=== PATIENT | male | born 1935 | race Caucasian/White ===

== ENCOUNTER → 2016-08-16 | Outpatient (CLI) | payer OTHER | LOC: GIMAGING 14:04 | PROVIDERS: ATTEND Family Medicine | DX: R07.81 Pleurodynia (principal) | CPT/HCPCS: 71101-PO ==

== ENCOUNTER 2016-11-14 12:41 | Inpatient (IN) | payer OTHER ==
[2016-11-14] MEDS ORDERED: NS 1,000 ML IV ONE ×4 (13:05→22:09)
--- NOTE | 2016-11-14 13:05 | EDPHY ---
H & P Stated Complaint: UA done today w/+ results;started with abd cramps and chills HPI/ROS: HPI CHIEF COMPLAINT: Shaking all over, bladder spasm HISTORY OF PRESENT ILLNESS: This patient 81-year-old male, significant past medical history for depression, BPH, and recurrent urinary tract infections, he presents emergency room after he was giving an outpatient urine specimen he went to lunch in the cafeteria started feeling cold and shaking all over. He tells me he developed some bladder spasms. He decided to check in emergency room as he cannot control he shaking. He does endorse chills. Vomiting or diarrhea. Does have nausea. He tells me that he had shakes like this before when he was dehydrated. Past Medical History: BPH, depression, recurrent urinary tract infection Past Surgical History: No recent surgery Social History: Denies daily use of drugs alcohol tobacco products lives at the [facility] Family History: Noncontributory ROS REVIEW OF SYSTEMS: A comprehensive 10 point review of systems is otherwise negative aside from elements mentioned in the history of present illness. Exam Constitutional appears well nontoxic, triage nursing summary reviewed, vital signs reviewed, awake/alert. Eyes normal conjunctivae and sclera, EOMI, PERRLA. HENT normal inspection, atraumatic, moist mucus membranes, no epistaxis, neck supple/ no meningismus, no raccoon eyes. Respiratory clear to auscultation bilaterally, normal breath sounds, no respiratory distress, no wheezing. Cardiovascular rate normal, regular rhythm, no murmur, no edema, distal pulses normal. Gastrointestinal soft, non-tender, no rebound, no guarding, normal bowel sounds, no distension, no pulsatile mass. Genitourinary no CVA tenderness. Musculoskeletal no midline vertebral tenderness, full range of motion, no calf swelling, no tenderness of extremities, no meningismus, good pulses, neurovascularly intact. Skin pink, warm, & dry, no rash, skin atraumatic. Neurologic awake, alert and oriented x 3, AAOx3, moves all 4 extremities equally, motor intact, sensory intact, CN II-XII intact, normal cerebellar, normal vision, normal speech. Psychiatric normal mood/affect. Heme/Lymph/Immune no lymphadenopathy. Differential Diagnosis: Includes but is not limited to in a particular order dehydration, electrolyte disturbance, infection, UTI. Medical Decision Making: Plan for this patient IV establishment, IV fluid bolus 1 L normal saline, check basic blood work, urinalysis. Re-evaluate. Re-evaluation: 1330: Notified to me that patient just vomited. I did review his urinalysis from lab today. Indicates that he has a urinary tract infection nitrite positive. I have sent a urine culture. 1 g Rocephin ordered. Blood cultures have been ordered in case the shakes or rigors. IV fluids. Lactic acid. 1332: This patient's lactic acid is 4.7 at this time he is in severe sepsis. Patient be appropriately resuscitated with IV fluids. He is not hypotensive does not require pressors at this time. Plan will be fluid resuscitation IV antibiotics for his urinary tract infection and trend his lactic acid. He will need to be admitted to the hospital. 1425: Patient cleared septic shock. This is due to elevated lactic acid 4.7. He is not hypotensive. He is receiving IV fluid fluid bolus 30 mL as per kg. Antibiotics are to be given IV Rocephin. He has been admitted to the step-down unit for close monitoring. 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 Coronel I viewed the images myself on the PACS system. Source: Patient - Personal History Current Tetanus Diphtheria and Acellular Pertussis (TDAP): Unsure - Medical/Surgical History Other PMH: chronic recurrent UTIs Constitutional: Initial Vital Signs Temperature (C) 36.6 C 11/14/16 12:54 Heart Rate 88 11/14/16 12:54 Respiratory Rate 20 11/14/16 12:54 Blood Pressure 126/72 H 11/14/16 12:54 O2 Sat (%) 96 11/14/16 12:54 O2 Delivery Mode Nasal Cannula O2 (L/minute) 2 Allergies/Adverse Reactions: No Known Allergies Allergy (Unverified 11/14/16 14:35) Home Medications: Medication Instructions Recorded Aspirin EC [Aspirin EC 81 mg (*)] 81 mg PO DAILY 11/14/16 Bupropion HCl [Wellbutrin Xl] 300 mg PO DAILY 11/14/16 Cholecalciferol Vit D3 [Vitamin D3 2,000 units PO DAILY 11/14/16 2000 units tab (OTC)] Cyanocobalamin (Vitamin B-12) 1,000 mcg PO DAILY 11/14/16 [B-12] Escitalopram Oxalate [Lexapro] 20 mg PO DAILY 11/14/16 Herbals/Supplements -Info Only 1 ea PO DAILY 11/14/16 Tamsulosin HCl [Flomax 0.4 MG (*)] 0.4 mg PO DAILY 11/14/16 Vit C/Dl-E AC/Lut/Copper/Znox 1 each PO DAILY 11/14/16 [Preservision Softgel] Medical Decision Making - Data Points Laboratory Results: Laboratory Results 11/14/16 13:15 11/14/16 13:15 Microbiology Results: MICROBIOLOGY 11/14/16 13:15 Blood Blood Culture - Preliminary Gram Neg Ferny [employer] Receptionist 11/14/16 13:15 Blood Blood Panel (PCR) - Final Escherichia Coli Medications Given: Discontinued Medications Sodium Chloride (Ns) 1,000 mls @ 0 mls/hr IV EDNOW ONE; Wide Open PRN Reason: Protocol Stop: 11/14/16 13:06 Last Admin: 11/14/16 13:25 Dose: 1,000 mls Ceftriaxone Sodium/Dextrose (Rocephin 1 Gm (Premix)) 50 mls @ 100 mls/hr IV EDNOW ONE PRN Reason: Protocol Stop: 11/14/16 13:56 Last Admin: 11/14/16 13:33 Dose: 50 mls Sodium Chloride (Ns) 1,000 mls @ 0 mls/hr IV ONCE ONE PRN Reason: Wide Open Stop: 11/14/16 13:32 Last Admin: 11/14/16 13:34 Dose: 1,000 mls Sodium Chloride (Ns) 1,000 mls @ 125 mls/hr IV CONT BERNY Stop: 05/13/17 14:59 Last Admin: 11/14/16 17:22 Dose: 1,000 mls Sodium Chloride (Ns) 1,000 mls @ 0 mls/hr IV ONCE ONE PRN Reason: Wide Open Stop: 11/14/16 15:24 Last Admin: 11/14/16 16:30 Dose: 1,000 mls Sodium Chloride (Ns) 1,000 mls @ 3,000 mls/hr IV ONCE ONE Stop: 11/14/16 22:28 Last Admin: 11/14/16 22:14 Dose: 1,000 mls Sodium Chloride (Ns) 1,000 mls @ 0 mls/hr IV ONCE ONE PRN Reason: As Directed Stop: 11/15/16 02:01 Last Admin: 11/15/16 00:45 Dose: 1,000 mls Lidocaine (Uroject Lidocaine 2% Jelly) 0 ml UR ONCE ONE Stop: 11/15/16 04:31 Last Admin: 11/15/16 05:28 Dose: 20 ml Morphine Sulfate (Morphine) 2 - 4 mg IVP ONCE ONE Stop: 11/15/16 04:40 Last Admin: 11/15/16 04:20 Dose: 4 mg Ondansetron HCl (Zofran) 4 mg IVP EDNOW ONE Stop: 11/14/16 13:27 Last Admin: 11/14/16 13:31 Dose: 4 mg Departure - Departure Disposition: [facility] Acute Clinical Impression: Septic shock Urinary tract infection Qualifiers: Urinary tract infection type: acute cystitis Hematuria presence: with hematuria Qualified Code(s): N30.01 - Acute cystitis with hematuria Condition: Fair
[2016-11-14] MEDS ORDERED: ONDANSETRON 4 MG/2 ML VIAL IVP ONE (13:26)
[2016-11-14 13:27] LABS: % IMMATURE GRANULYOCYTES 0.4 % (0.0-1.1); ABSOLUTE IMMATURE GRANULOCYTES 0.03 10^3/uL (0.00-0.10); ADD DIFF? NO; ADD MORPH? NO; ADD SCAN? NO; ATYPICAL LYMPHOCYTE FLAG 0 (0-99); FRAGMENT RBC FLAG 0 (0-99); HEMATOCRIT 43.3 % (40.0-51.0); HEMOGLOBIN 14.7 g/dL (13.7-17.5); LEFT SHIFT FLG 20 (0-99); LIPEMIA HEMOLYSIS FLAG 90 (0-99); MEAN CELL HEMOGLOBIN 31.5 pg (27.9-34.1); MEAN CELL HEMOGLOBIN CONCENTR. 33.9 g/dL (32.4-36.7); MEAN CELL VOLUME 92.9 fL (81.5-99.8); MEAN PLATELET VOLUME 9.5 fL (8.7-11.7); PLATELET CLUMPS FLAG 0 (0-99); PLATELET COUNT 152 10^3/uL (150-400); RED BLOOD CELL COUNT 4.66 10^6/uL (4.40-6.38); RED CELL DISTRIBUTION WIDTH 13.6 % (11.5-15.2)
[2016-11-14 13:36] LABS: PROTIME(PATIENT) 13.1 SEC (12.0-15.0)
[2016-11-14 13:37] LABS: APTT 24.1 SEC (23.0-38.0)
[2016-11-14 13:49] LABS: ALANINE AMINOTRANSFERASE 35 IU/L (21-72); ALBUMIN 4.3 g/dL (3.5-5.0); ALKALINE PHOSPHATASE 50 IU/L (38-126); ANION GAP 16 mEq/L (8-16); ASPARTATE AMINOTRANSFERASE 23 IU/L (17-59); BILIRUBIN,TOTAL 0.5 mg/dL (0.1-1.4); BILIRUBIN-CONJUGATED 0.2 mg/dL (0.0-0.5); BILIRUBIN-UNCONJUGATED 0.3 mg/dL (0.0-1.1); CALCIUM 9.3 mg/dL (8.5-10.4); CARBON DIOXIDE 23 mEq/l (22-31); CHLORIDE 102 mEq/L (97-110); CREATININE 1.1 mg/dL (0.7-1.3); GLOMERULAR FILTRATION RATE > 60; GLUCOSE 112 mg/dL (70-100); POTASSIUM 4.4 mEq/L (3.5-5.2); SODIUM 141 mEq/L (134-144); TOTAL PROTEIN 7.4 g/dL (6.3-8.2)
[2016-11-14] MEDS ORDERED: IOPAMIDOL (ISOVUE-300) 100 ML BTL ONE (13:52)
[2016-11-14] MEDS ORDERED: ONDANSETRON DISINTEGRATING 4 MG TAB PO PRN (14:39)
[2016-11-14] MEDS ORDERED: ONDANSETRON 4 MG/2 ML VIAL IVP PRN (14:39)
[2016-11-14] MEDS ORDERED: NS 1,000 ML IV SCH (15:00)
--- NOTE | 2016-11-14 15:22 | GHP ---
[f rep st] HISTORY AND PHYSICAL DATE OF ADMISSION: 11/14/2016 CHIEF COMPLAINT: Septic shock. HISTORY OF PRESENT ILLNESS: The patient is an 81-year-old male with history of recurrent UTIs, urinary obstruction, BPH and depression, who presented with feeling sick and shakes. He was in the lab today, given routine urine per Dr. Berg, his primary urologist and then went to the cafeteria for lunch. During lunch, he felt a sudden artis of shakes and did not feel well; thus he came to the emergency room. He has felt sick for the last 4-5 days, including lethargy , emesis x1 today. Endorses minimal dysuria, but increased frequency. He felt achy today in the cafeteria. He has had two UTIs since June 2016, both being E. coli pansensitive. He denies fevers or chills. No diarrhea. Mild headache. REVIEW OF SYSTEMS: I completed a 10-point review of systems, negative except as noted in HPI. PAST MEDICAL HISTORY: 1. BPH. 2. Recurrent UTIs with urinary obstruction. 3. Idiopathic detrusor overactivity. 4. Depression. 5. Macular degeneration. 6. Spinal stenosis. 7. Left testicular cancer. PAST SURGICAL HISTORY: 1. Appendectomy. 2. Radical orchiectomy. 3. Rotator cuff. FAMILY HISTORY: Mother of breast cancer. SOCIAL HISTORY: Lives at the . No illicits, tobacco or alcohol. ALLERGIES: No known drug allergies. HOME MEDICATIONS: B12, bupropion 150 mg extended release, Lexapro 5 mg daily, Mucinex, Vitamin D. PHYSICAL EXAMINATION: VITAL SIGNS: Temperature afebrile 36.5. Blood pressure , heart rate 104, respiration 18, 94% on 2 L. GENERAL: Uncomfortable , restless in bed, mildly pale. HEENT: PERRLA. Dry mucous membranes. CV: Regular tachy. No murmurs, gallops, rubs. LUNGS: Clear to auscultation bilaterally. ABDOMEN: Soft, nontender, nondistended. Positive bowel sounds. : Right suprapubic tenderness to palpation. MUSCULOSKELETAL: 5/5 upper and lower extremity strength. NEUROLOGIC: 2 through 12 intact. PSYCHIATRIC: Alert to self, date, but not place. States he feels confused. LABS: Sodium 141, potassium 4.4, chloride 102, carbon dioxide 23, BUN 18, creatinine 1.1, anion gap 16, glucose 112, calcium 9.8, LFTs within normal. WBC 8.3, hemoglobin 14, hematocrit 43, platelets 152. Coags within normal. Lactate is 4.7. UA: 50-182 WBCs, +3 leuk esterase, positive nitrites, +[address]: Full report is pending, but spoke with the on- call radiologist stating there is some bladder wall thickening and enlarged prostate. There is a small left iliac artery thrombus. ASSESSMENT AND PLAN: 1. Septic shock: Given positive UA and elevated lactate greater than 4, the sepsis protocol was initiated with aggressive IV fluid resuscitation. Blood pressures are currently stable. We will repeat lactate. Received ceftriaxone. Urine and blood cultures are pending. Patient will be transferred to the SCU for further monitoring. 2. Recurrent UTIs: Suspect secondary to BPH and detrusor overactivity and partial retention. Dr. Berg was paged from the emergency room. 3. Depression. We will resume home medications. 4. Lactic acidosis: Secondary to sepsis as well as decreased p.o. intake. 5. History of testicular cancer, status post radical orchidectomy. 6. Diet: Regular. 7. Deep venous thrombosis prophylaxis. Lovenox. DISPOSITION: Patient warrants inpatient admission given acute septic shock secondary to urinary source requiring IV fluids and antibiotics. Critical care time spent: 60 min bedside with patient, reviewing records and discussing treatment with daughter. /[id number]/MODL MTDD
[2016-11-14 19:47] LABS: COLOR YELLOW; LEUKOCYTE ESTERASE,URINE 2+ (NEGATIVE); NITRITE,URINE NEGATIVE (NEGATIVE)
[2016-11-14] MEDS: ACETAMINOPHEN 325 MG TAB PO PRN (19:54)
[2016-11-14 20:01] LABS: BACTERIA TRACE /hpf (NONE SEEN); MUCUS TRACE /lpf (NONE-1+); WBC,URINE 25-50 /hpf (0-3)
[2016-11-14] MEDS ORDERED: NS 500 ML IV ONE (21:51)
[2016-11-15] MEDS ORDERED: NS 1,000 ML IV ONE (02:00)
[2016-11-15] MEDS ORDERED: NOREPINEPHRINE/NS 500 ML IV SCH (03:00)
[2016-11-15] MEDS ORDERED: VASOPRESSIN/DEXTROSE 250 ML IV SCH (03:00)
[2016-11-15 03:23] LABS: HEMATOCRIT 33.3 % (40.0-51.0); HEMOGLOBIN 11.3 g/dL (13.7-17.5); MEAN CELL HEMOGLOBIN 31.7 pg (27.9-34.1); MEAN CELL HEMOGLOBIN CONCENTR. 33.9 g/dL (32.4-36.7); MEAN CELL VOLUME 93.3 fL (81.5-99.8); RED BLOOD CELL COUNT 3.57 10^6/uL (4.40-6.38); RED CELL DISTRIBUTION WIDTH 13.9 % (11.5-15.2)
[2016-11-15 03:37] LABS: ANION GAP 7 mEq/L (8-16); CALCIUM 7.3 mg/dL (8.5-10.4); CARBON DIOXIDE 20 mEq/l (22-31); CHLORIDE 113 mEq/L (97-110); CREATININE 0.9 mg/dL (0.7-1.3); GLOMERULAR FILTRATION RATE > 60; GLUCOSE 97 mg/dL (70-100); POTASSIUM 4.2 mEq/L (3.5-5.2); SODIUM 140 mEq/L (134-144)
[2016-11-15] MEDS: ACETAMINOPHEN 325 MG TAB PO PRN ×2 (04:30→21:00)
[2016-11-15] MEDS ORDERED: LIDOCAINE 2% JELLY 20 ML (UROJECT) UR ONE (04:30)
--- NOTE | 2016-11-15 08:30 | CPEKG ---
Heart Rate: 91 RR Interval: 659 P-R Interval: 166 QRSD Interval: 80 QT Interval: 356 QTC Interval: 439 P [place]: 0 QRS [place]: 47 T Wave [place]: 46 EKG Severity - OTHERWISE NORMAL ECG - EKG Impression: SINUS RHYTHM EKG Impression: ABERRANT COMPLEX, POSSIBLY SUPRAVENTRICULAR EKG Impression: MODERATE BASELINE ARTIFACT EKG Impression: FIRST DEGREE AVB Electronically Signed By: Gaurav Gutierrez 15-Nov-2016 23:19:28
[2016-11-15] MEDS ORDERED: D5W 1/2 NS 1,000 ML IV SCH (08:45)
[2016-11-15] MEDS ORDERED: NON-FORMULARY NEW DRUG (Cyanocobalamin (Vitamin B-12) [B-12] 1,000 MCG) PO SCH (09:00)
[2016-11-15] MEDS: buPROPion XL 150 MG TAB PO SCH (09:16)
[2016-11-15] MEDS: ENOXAPARIN 40 MG/0.4 ML SYR SC SCH (09:16)
[2016-11-15] MEDS: ASPIRIN EC 81 MG TAB PO SCH (09:16)
[2016-11-15] MEDS: PRESERVISION AREDS2 FORMULA EYE VIT 1 EACH PO SCH (09:16)
[2016-11-15] MEDS: CYANO/VITAMIN B12 1000 MCG TAB PO SCH (09:16)
[2016-11-15] MEDS: ESCITALOPRAM OXALATE 10 MG TAB PO SCH (09:16)
[2016-11-15] MEDS: CHOLECALCIFEROL VIT D3 2,000 UNITS TAB/CAP PO SCH (09:16)
--- NOTE | 2016-11-15 10:28 | GOP ---
[f rep st] OPERATIVE REPORT DATE OF OPERATION: 11/14/2016 SURGEON: Konrad Reese MD HOUSETRAILER SERVICER: None. ANESTHESIA: 1% lidocaine. PREOPERATIVE DIAGNOSIS: Sepsis. POSTOPERATIVE DIAGNOSIS: Sepsis. PROCEDURE PERFORMED: Ultrasound-guided left internal jugular central venous catheter placement. FINDINGS: Left internal jugular vein was successfully cannulated. Triple-lumen 7-Danish central ve nous catheter successfully placed. SPECIMENS: None. DESCRIPTION OF PROCEDURE: The patient was greeted in the intensive care unit. After explaining the risks, benefits, and alternatives, consent was signed. After performing a [facility] time-out the patient's left neck was prepped and draped in typical sterile fashion. Using a steri le ultrasound probe, I identified the left internal jugular vein and successfully cannulated it, aft er obtaining successful anesthesia. Using the Seldinger technique I then successfully threaded my g uidewire, over which I serially dilated, over which I placed the triple-lumen catheter successfully into the vein without issue. It both withdrew and flushed appropriately. Dark venous blood was obt ained, it was nonpulsatile, it was attached to the skin. A Biopatch and sterile dressing was placed . The patient tolerated the procedure well without any intraprocedural complications. DRAINS: None. /[id number]/MODL
[2016-11-15 11:52] LABS: TROPONIN I 0.052 ng/mL (0-0.034)
--- NOTE | 2016-11-15 16:11 | ECHO ---
[id number] + + [address] : : [place] [address] : : [phone] + Adult Echocardiographic Report + ------+ :Name: VIKKICHANTEL CHAUDHARY Lefty Date: 11/15/2016 01:26 PM : : Hospital Admission Number: [id number] Locatio n: 243: :: 1935 Gender: Male Height: 71 in : :Age: 81 yrs Race: WH Weight: 140 lb : :Reason For Study: Eval LV Fx : : BSA: 1.8 meters 2 : :History: Murmur, Increase in O2 needs : + ------+ MMode/2D Measurements \T\ Calculations IVSd: 0.96 cm LVIDd: 5.1 cm FS: 41.1 % MV Diam: 3.2 cm LVPWd: 1.0 cm LVIDs: 3.0 cm EDV(Teich): 121.3 ml ESV(Teich): 34.4 ml EF(Teich): 71.6 % Ao root diam: 4.4 cm LVOT diam: 2.1 cm ACS: 0.81 cm LVOT area: 3.5 cm2 Normal Measurement Values: + + :LVIDd (3.5-5.7cm) IVSd (0.6-1.1cm) LVPWd (0.6-1.1cm) Aortic Root (2.0-3.7cm)Left Atrium (1.5-4.0cm): :LV Vol(d) (76-115ml) LV Vol(s) (29-48ml) Ejec Fraction (50-65%)PV Julien (0.6- 1.2m/s) TV Julien (0.4-1.0m/s) : :MV E Julien (0.8-1.0m/s)MV A Julien (0.3-1.0m/s)LVOT Julien (0.7-1.2m/s) Asc Ao Julien ( 0.9-1.8m/s) : + + Doppler Measurements \T\ Calculations MV E max julien: MV V2 max: Ao V2 max: AI max julien: 88.4 cm/sec 158.8 cm/sec 251.1 cm/sec 393.3 cm/sec MV A max julien: MV max PG: Ao max PG: AI max P.3 cm/sec 10.1 mmHg 25.2 mmHg 61.9 mmHg MV E/A: 1.6 MV V2 mean: Ao mean PG: AI dec slope: 69.5 cm/sec 15.4 mmHg MV mean PG: Ao V2 mean: 160.0 cm/sec2 2.6 mmHg 176.2 cm/sec AI P1/2t: MV V2 VTI: 33.8 cm Ao V2 VTI: 720.2 msec MV area (1 diam): 55.2 cm 8.0 cm2 MIREYA(I,D): 1.3 cm2 MVA(VTI): 2.1 cm2 MIREYA(V,D): 1.7 cm2 MV Flow area (1diam): 8.0 cm2 LV V1 max: SV(MV 1 diam): PA V2 max: TR max julien: 119.9 cm/sec 271.5 ml 152.0 cm/sec 236.2 cm/sec LV V1 max PG: SI(MV 1 diam): PA max PG: TR max P.8 mmHg 9.2 mmHg 22.3 mmHg LV V1 mean P.8 ml/m2 RAP systole: 2.0 mmHg SV(LVOT): 72.0 ml 5.0 mmHg LV V1 mean: RVSP(TR): 27.3 mmHg 62.8 cm/sec LV V1 VTI: 20.8 cm RF(MV,Ao)(1 diam): -2.1 RF(MV,LVOT) (1diam): 0.73 Left Ventricle The left ventricle is normal in size. There is normal left ventricular wall thickness. The left ventricular ejection fraction is normal. There is Doppler evidence for diastolic dysfunction. Ejection Fraction = 71%. The left ventricular wall motion is normal. Right Ventricle The right ventricle is normal in size and function. Atria The left atrial size is normal. Right atrial size is normal. Mitral Valve The mitral valve is normal. There is no evidence of mitral valve prolapse. There is no mitral valve stenosis. There is trace to mild mitral regurgitation. Tricuspid Valve There is mild tricuspid regurgitation. Right ventricular systolic pressure is normal. Aortic Valve There is moderate to severe aortic valve calcification. The Ao V2 max is 2.5 m/s and the Ao mean PG is 15 mmHg. There is a calculated aortic valve area of 1.3 cm2. Mild valvular aortic stenosis. Moderate aortic regurgitation. Pulmonic Valve The pulmonic valve is normal in structure and function. There is no pulmonic valvular regurgitation. Great Vessels The aortic root is normal size. Pericardium/Pleural There is no pericardial effusion. Conclusion A complete two-dimensional transthoracic echocardiogram was performed (2D, M-mode, Doppler and color flow Doppler). The left ventricular ejection fraction is normal. There is Doppler evidence for diastolic dysfunction. Ejection Fraction = 71%. The left ventricular wall motion is normal. The right ventricle is normal in size and function. Normal appearing mitral and tricuspid valves. There is trace to mild mitral regurgitation. There is mild tricuspid regurgitation. Right ventricular systolic pressure is normal. There is moderate to severe aortic valve calcification. The Ao V2 max is 2.5 m/s and the Ao mean PG is 15 mmHg There is a calculated aortic valve area of 1.3 cm2. Mild valvular aortic stenosis. Moderate aortic regurgitation. The pulmonic valve is normal in structure and function. There is no pericardial effusion. Final Reading Physician: Kiley Asher signed on 11/15/2016 04:10 PM Ordering Physician: Gaurav Moore Performed By: Julio Pride RDCS
[2016-11-15] MEDS ORDERED: MAGNESIUM SULF 1 GM/DEXTROSE 100 ML IV ONE (17:18)
--- NOTE | 2016-11-15 17:26 | HOSPPROG ---
Hospitalist Progress Note Assessment/Plan: assessment: 81-year-old male presents with septic shock in the setting of E coli bacteremia Plan: 1. Septic shock. Present on admission, evidenced by a SOFA score of 6 (meeting all Sepsis-3/ICDS-3 criteria) w/ lactic acid of 4.7, mean arterial pressure 53 a systolic of 81, requiring Levophed secondary to autonomic dysregulation in the setting of infection, notably E coli bacteremia -status post IV fluids, empiric IV antibiotics -continue to monitor CBC, concern given his rising white blood cell count today despite adequate treatment -wean pressors 2. E coli bacteremia. Most likely secondary to urinary source -reviewed outside records including 09/01/2016 microbiology demonstrating ampicillin resistant E coli, otherwise pansensitive -continue IV ceftriaxone, day 2 -discussed with Dr. aMnuel Newell, he reports he will consult on this patient -abdominal imaging does not demonstrate any perinephric or elaine bladder abscesses 3. acute diastolic congestive heart failure exacerbation. Evidenced by diffuse infiltrates on chest x-ray ( personally interpreted) with hypoxia, SpO2 of 88%, requiring up to 4 L nasal cannula -hold on further IV fluids -if respiratory status worsening, treat with IV Lasix -attempting to outpatient to equilibrate from a volume standpoint given his treatment for septic shock 4. possible atrial fibrillation. Acute, new diagnosis for this patient, further workup indicated. Present on telemetry, patient reports no previous history - magnesium level 1.7, give 1 g of IV magnesium - most likely provoked in the setting of above -continue monitor on telemetry for any rapid ventricular response, and if so, treat with IV metoprolol, then oral - get TSH level, cycle troponin level - will discuss systemic anticoagulation with this patient tomorrow 5. BPH. Chronic, patient's primary urologist is Dr. Berg and a cystoscopy was performed approximately 1 month ago - his urinary tract infection is most likely secondary to his underlying urinary retention and not recent instrumentation as I would suspect that would lead to a more rapid infection 6. urinary tract infection. Evidenced by positive urinalysis, most likely secondary to urinary retention, monitor urine culture, will most likely grow E coli Diet. Regular Prophylaxis. High risk patient, Lovenox 40 Code. Full Disposition. Anticipated discharge uncertain this time. 35 minutes of critical care time spent with this patient, as well as a team rounds and coordinating his care, addressing the issues as outlined above. Patient remains high medical complexity, high risk for worsening morbidity and/ or mortality. Subjective: reports he is having some urinary hesitancy Objective: Vital Signs Temp Pulse Resp BP Pulse Ox 36.7 C 78 20 103/79 96 11/15/16 16:00 11/15/16 16:00 11/15/16 16:00 11/15/16 16:00 11/15/16 16:00 Laboratory Results 11/15/16 03:15 11/15/16 03:15 11/14/16 11/15/16 11/16/16 05:59 05:59 05:59 Intake Total 8178 Output Total 1225 300 Balance 6953 -300 PT 13.1 SEC (12.0-15.0) 11/14/16 13:15 INR 1.00 (0.83-1.16) 11/14/16 13:15 - Physical Exam Constitutional: no apparent distress, not in pain, No uncomfortable Cardiovascular: systolic murmur ( 106 systolic murmur at the sternum), No tachycardia, No bradycardia, No edema Respiratory: inspiratory crackles ( bilaterally), No expiratory wheeze, No bronchial breath sounds Gastrointestinal: normoactive bowel sounds, soft, non-tender abdomen, no palpable masses Genitourinary: no bladder fullness, no bladder tenderness, graham in urethra ( danny colored urine) Neurologic: AAOx3 Psychiatric: interacting appropriately, not anxious, not encephalopathic, thought process linear ICD10 Worksheet Patient Problems: Problems Problem Status Onset Septic shock Acute Urinary tract infection Acute
[2016-11-15] MEDS: TAMSULOSIN HCL 0.4 MG CAP PO SCH (17:40)
[2016-11-16] MEDS: ACETAMINOPHEN 325 MG TAB PO PRN ×3 (01:46→23:15)
--- NOTE | 2016-11-16 03:22 | GCON ---
[f rep st] CONSULTATION DATE OF CONSULTATION: 11/15/2016 REFERRING PHYSICIAN: Gaurav Moore MD REASON FOR CONSULTATION: Septic shock with E coli bacteremia. HISTORY OF PRESENT ILLNESS: Patient is an 81-year-old male with a past medical history of BPH and p rior recurrent urinary tract infection, who I am asked to see in consultation for septic shock due t o E coli bacteremia. Patient describes having recurrent UTIs beginning in June of this year. He t ypically has received treatment with Bactrim with resolution of symptoms but has had subsequent recu rrence of symptoms over time. Yesterday, he had developed urinary frequency and had dropped off a u rine sample for evaluation. When he went to eat, he developed the abrupt onset of rigors. Based on those findings, patient was evaluated in the emergency department where he was noted to have lactic acidosis and significant pyuria. He describes having urinary frequency and urgency without dysuria . He does note malodorous urine. He has not had any suprapubic or flank pain. There is no testicu lar pain. Patient describes feeling run down over the last several weeks. Patient was admitted for septic shock and treated with ceftriaxone for his septic shock, as well as per sepsis protocol. Bl ood cultures subsequently have returned with 1 of 2 sets showing E coli. Review of previous E coli isolates from urinary sample shows fairly broad susceptibility in his organisms with resistance only to ampicillin and ampicillin sulbactam. Patient briefly required pressors, and these have now been weaned off. He feels significantly improved. Given the above findings, I am now asked to assist i n his ongoing management. 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 PAST SURGICAL HISTORY: Appendectomy, orchiectomy, rotator cuff surgery. CURRENT MEDICATIONS: Ceftriaxone 1 g IV daily, aspirin 81 mg p.o. daily, Wellbutrin XL 300 mg p.o. daily, vitamin D 2000 units p.o. daily, Lovenox 40 mg subcu daily, Lexapro 20 mg p.o. daily, multivi tamin p.o. daily, vitamin B12 1000 mcg p.o. daily. ALLERGIES: No known drug allergies. SOCIAL HISTORY: Patient does not smoke. He drinks small amounts of alcohol. FAMILY HISTORY: Stroke. REVIEW OF SYSTEMS: Outside that noted in the HPI, remainder of 10 system review is unremarkable. PHYSICAL EXAMINATION: VITAL SIGNS: Temperature 36.9, heart rate 82, respiratory rate 27, blood pre ssure 99/62, oxygen saturation 96% on 4 L. GENERAL: Patient is well nourished, well developed, in no acute distress. He appears nontoxic. HEENT: There is no scleral icterus, conjunctival injectio n, or conjunctival petechiae. Oropharynx is clear without lesions. Mucous membranes are moist. De ntition is in fair repair. There is no nasal discharge. There is no tenderness over the frontal, m axillary, or mastoid area. NECK: Supple without palpable lymphadenopathy or thyromegaly. CHEST: Clear to auscultation bilaterally without adventitious sounds. Respiratory effort is normal. CARDI OVASCULAR: Regular rate and rhythm with distant heart tones. ABDOMEN: Soft, mild suprapubic tende rness. There is no palpable organomegaly. Bowel sounds are present. BACK: No CVA tenderness bila terally. : There is mild testicular tenderness without edema or scrotal erythema. MUSCULOSKELET AL: No cyanosis or clubbing; there is trace lower extremity edema bilaterally. SKIN: No stigmata of endocarditis. Skin is warm and dry to touch. There is no inguinal rash. NEUROLOGIC: Patient i s alert and interacts appropriately with examiner. Cranial nerves 2-12 are grossly intact. Sensati on is grossly intact. Muscle tone and bulk are normal. LABORATORY DATA: White blood cell count 15.8, hematocrit 33.3, platelets 97, neutrophils 92%. Seru m creatinine is 0.9, AST 23, ALT 35, bilirubin 0.5, alkaline phosphatase 50. Lactic acid is 1.1. U rinalysis shows 50-182 white blood cells with 15-25 red blood cells and 1+ bacteria. INR is 1.0. O ne of 2 sets of blood cultures showing growth of E coli. Urine culture showing greater than 100,000 gram-negative rods which are lactose fermenting. Prior review of urine cultures from earlier this year show repeated isolation of E coli, as outlined previously. 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 Chest x-ray shows no focal infiltrate. IMPRESSION: Septic shock due to Escherichia coli bacteremia of urinary etiology: Patient is clinic ally improved with treatment under the sepsis protocol and IV antibiotic therapy. Review of prior E scherichia coli isolate shows brought susceptibility. Given the recurrent nature of his urinary tra ct infections and calcifications in the prostate, query if he has an element of prostatitis as a con tribution. He also has some iliac thrombus noted but suspect endovascular involvement by [place] a coli should be of low likelihood. If he clears his bacteremia rapidly, this would provide further support that this is unlikely to be present. RECOMMENDATIONS: 1. Agree with ceftriaxone. 2. Follow up blood and urine culture susceptibilities. 3. Continue supportive care for sepsis. 4. Will review CT scan further with Radiology regarding possibility of prostatitis. Thank you for this consultation. We will continue to follow the patient with you. /[id number]/MODL
[2016-11-16] MEDS ORDERED: FUROSEMIDE 20 MG/2 ML VIAL IVP ONE (03:53)
[2016-11-16 04:36] LABS: HEMATOCRIT 32.5 % (40.0-51.0); HEMOGLOBIN 11.1 g/dL (13.7-17.5); MEAN CELL HEMOGLOBIN 31.5 pg (27.9-34.1); MEAN CELL HEMOGLOBIN CONCENTR. 34.2 g/dL (32.4-36.7); MEAN CELL VOLUME 92.3 fL (81.5-99.8); RED BLOOD CELL COUNT 3.52 10^6/uL (4.40-6.38)
[2016-11-16 04:59] LABS: ANION GAP 6 mEq/L (8-16); CALCIUM 7.8 mg/dL (8.5-10.4); CARBON DIOXIDE 23 mEq/l (22-31); CHLORIDE 109 mEq/L (97-110); CREATININE 0.8 mg/dL (0.7-1.3); GLOMERULAR FILTRATION RATE > 60; GLUCOSE 124 mg/dL (70-100); MAGNESIUM 2.2 mg/dL (1.6-2.3); POTASSIUM 3.7 mEq/L (3.5-5.2); SODIUM 138 mEq/L (134-144)
[2016-11-16 05:09] LABS: TROPONIN I 0.052 ng/mL (0-0.034)
[2016-11-16] MEDS: ESCITALOPRAM OXALATE 10 MG TAB PO SCH (08:41)
[2016-11-16] MEDS: CHOLECALCIFEROL VIT D3 2,000 UNITS TAB/CAP PO SCH (08:41)
[2016-11-16] MEDS: CYANO/VITAMIN B12 1000 MCG TAB PO SCH (08:41)
[2016-11-16] MEDS: TAMSULOSIN HCL 0.4 MG CAP PO SCH (08:41)
[2016-11-16] MEDS: PRESERVISION AREDS2 FORMULA EYE VIT 1 EACH PO SCH (08:41)
[2016-11-16] MEDS: buPROPion XL 150 MG TAB PO SCH (08:41)
[2016-11-16] MEDS: ASPIRIN EC 81 MG TAB PO SCH (08:41)
[2016-11-16] MEDS: ENOXAPARIN 40 MG/0.4 ML SYR SC SCH ×2 (11:45→12:32)
[2016-11-16] MEDS: FUROSEMIDE 20 MG/2 ML VIAL IVP ONE ×2 (12:32→15:35)
--- NOTE | 2016-11-16 13:17 | PDINTPN ---
Field Advisor Progress Note Assessment/Plan: Assessment: Severe Sepsis: Resolved. Likely urinary source. On CTX, to which the E.Coli is sensitive. Fluid overload/interstitial pulmonary edema: From fluid resuscitation with diastolic dysfunction. Minimal O2 needs. Received Lasix this AM. CP: Resolved. Likely due to Muscle spasm from rigors and/or pulmonary edema. Atrial Fibrillation: Now NSR. Plan: Repeat Lasix PRN. Continue CTX. May be able to change to PO and discharge in 1-2 days. 11/16/16 13:14 11/16/16 13:18 Subjective: Feels better, but still weak. CP resolved. Appetite improved. Still with urinary frequency. Objective: Vital Signs Temp Pulse Resp BP Pulse Ox 37.2 C 66 20 96/53 L 96 11/16/16 07:00 11/16/16 12:00 11/16/16 12:00 11/16/16 12:00 11/16/16 12:00 Microbiology 11/14/16 19:35 Urine Culture - Final Urine,Clean Catch Gram Neg Rods 2 Or More Types Laboratory Results 11/16/16 04:10 11/16/16 04:10 11/15/16 11/16/16 11/17/16 05:59 05:59 05:59 Intake Total 8178 2349 Output Total 1225 2730 300 Balance 6929 -381 -300 PT 13.1 SEC (12.0-15.0) 11/14/16 13:15 INR 1.00 (0.83-1.16) 11/14/16 13:15 Physical Exam - Physical Exam General Appearance: alert EENT: normal ENT inspection Neck: normal inspection Respiratory: lungs clear, normal breath sounds Cardiac/Chest: regular rate, rhythm, edema Abdomen: non-tender, soft Skin: normal color, warm/dry Extremities: normal inspection Neuro/Psych: alert, normal mood/affect, oriented x 3 ICD10 Worksheet Patient Problems: Problems Problem Status Onset Septic shock Acute Urinary tract infection Acute
--- NOTE | 2016-11-16 14:39 | GCON ---
[f rep st] CONSULTATION PULMONARY/CRITICAL CARE CONSULTATION DATE OF CONSULTATION: 11/15/2016 REFERRING PHYSICIAN: Gaurav Moore MD REASON FOR REFERRAL: Evaluation and management of sepsis and hypotension with hypoxemia. HISTORY: The patient is an 81-year-old gentleman with a past history of BPH and recurrent urinary t ract infections, who has had several UTIs over in the past several months. Yesterday, he developed urinary frequency followed by rigors. He went to the emergency department where he was found to hav e an elevated lactate, as well as pyuria. He was admitted to the hospital and started on a sepsis p rotocol with ceftriaxone. Blood cultures were positive for E coli. As part of the sepsis protocol, he has been on norepinephrine. He reports that he no longer has rigors and does not have any chill s. The patient reports that earlier today he had an episode of anterior chest pain/spasm that was f airly brief. He now has some mild sense of his chest being tight when he takes a deep breath throug hout his anterior chest. He denies any dyspnea. PAST MEDICAL HISTORY: 1. History of recurrent urinary tract infections with BPH. 2. Macular degeneration. 3. History of testicular cancer. 4. History of depression. MEDICATIONS: Medications at time of admission included aspirin, bupropion, Lexapro, and tamsulosin. Here in the hospital, he is on ceftriaxone and enoxaparin, as well as his home medications. ALLERGIES: None. SOCIAL HISTORY: The patient does not smoke, and he drinks alcohol occasionally. FAMILY HISTORY: Positive for stroke. REVIEW OF SYSTEMS: A 10-point review of systems adds nothing to the History of Present Illness. PHYSICAL EXAMINATION: GENERAL: The patient is awake, alert, and in no acute distress. VITAL SIGNS : Blood pressure is 108/59 with a heart rate of 79. Oxygen saturations are 99% on 4 L. HEENT: No rmocephalic and atraumatic. No icterus. NECK: No JVD. Trachea is midline. CHEST: Clear to ausc ultation. Nontender. CARDIAC: Regular rate and rhythm without murmur. ABDOMEN: Soft. Nontender . Bowel sounds are present. EXTREMITIES: No clubbing, cyanosis, or edema. NEURO: The patient is awake, alert, and oriented x3. He has no gross motor or sensory deficits. LABORATORY DATA: Chemistry group shows a bicarbonate of 20. The white blood count is 15.8 with a h emoglobin of 11.3, and venous lactate is 1.1, down from 4.7 on admission. The troponin is 0.052. A n ECG shows normal sinus rhythm with some APCs and first-degree AV block. Image reviewed. IMAGING DATA: A chest x-ray shows mild interstitial edema/fluid overload. Images reviewed. A urin e culture is positive for E coli that is sensitive to ceftriaxone. ASSESSMENT: 1. Septic shock. The patient was admitted with an elevated lactate, signs of urinary tract infecti on, and hypotension. The hypertension is improved with aggressive fluid resuscitation. The patient has been able to come off Levophed. His symptoms of rigors have resolved. 2. Escherichia coli bacteremia. This is likely due to a urinary source. The patient is currently treated with ceftriaxone, to which this organism is susceptible. 3. Probable fluid overload. Chest x-ray shows some interstitial edema, and the patient has mild hy poxemia consistent with some mild pulmonary edema. He is currently minimally symptomatic with this. 4. Chest pain. The patient has some anterior chest "tightness." There is a pleuritic component to this, but the pain has improved/resolved spontaneously and is fairly diffuse in his anterior chest. I have low clinical suspicion for pulmonary embolism. This likely represents some mild heart fail ure or perhaps a component of muscle spasm/rigors related to his sepsis. 5. Atrial fibrillation. The patient had atrial fibrillation. This has resolved spontaneously. Th e patient has a structurally normal heart. The atrial fibrillation is likely in response to the pat ient's sepsis, as well as aggressive fluid resuscitation. RECOMMENDATIONS: 1. Continue ceftriaxone. 2. Back off on IV fluids. He may benefit from diuresis as long as his blood pressure remains stabl e. 3. No further evaluation for chest pain at this time, as the chest pain is essentially resolved. I ts character suggested more muscle spasm/rigors as opposed to PE or cardiac cause. /[id number]/MODL
--- NOTE | 2016-11-16 15:05 | HOSPPROG ---
Hospitalist Progress Note Assessment/Plan: assessment: 81-year-old male presents with septic shock in the setting of E coli bacteremia c/b acute diastolic CHF Plan: 1. Septic shock. Present on admission, evidenced by a SOFA score of 6 (meeting all Sepsis-3/ICDS-3 criteria) w/ lactic acid of 4.7, mean arterial pressure 53 a systolic of 81, requiring Levophed secondary to autonomic dysregulation in the setting of infection, notably E coli bacteremia - continue to monitor CBC, concern given his rising white blood cell count today despite adequate treatment -off pressors, holding further IVF 2. E coli bacteremia. Most likely secondary to urinary source -continue IV ceftriaxone, day 3 -discussed with Dr. Suraj Daley, he recommends repeat BCx at this time, demonstrate clearance 3. Acute diastolic congestive heart failure exacerbation. Worsening overnight w / increasing o2 requirements and diffuse interstitial infiltrates on CXR ( personally interpreted) -diuresed 2L since lasix o/n, give second dose if SBP tolerates >100 4. Atrial fibrillation. Acute, transient RVR, likely provoked in setting of infxn/CHF -no recurrence o/n -not requiring dillan blocking agent, will discuss anticoagulation w/ patient 5. BPH. Chronic, patient's primary urologist is Dr. Berg and a cystoscopy was performed approximately 1 month ago - his urinary tract infection is most likely secondary to his underlying urinary retention and not recent instrumentation as I would suspect that would lead to a more rapid infection 6. Urinary tract infection. Evidenced by positive urinalysis, most likely secondary to urinary retention, monitor urine culture, will most likely grow E coli 7. Acute Hypoxic Respiratory Failure. Evidenced by SpO2 86% on 15L facemask o2 w / visibly labored breathing and symptomatic shortness of breath, 2/2 acute worsening of CHF - improving s/p diuresis - remains on 4L NC, no prior o2 requirement Diet. Regular Prophylaxis. High risk patient, Lovenox 40 Code. Full Disposition. Anticipated discharge uncertain this time. High medical complexity, High risk worsening morbidity/mortality for issues outlined above. Subjective: reports polyuria since receiving Lasix Objective: Vital Signs Temp Pulse Resp BP Pulse Ox 37.2 C 66 20 96/53 L 96 11/16/16 07:00 11/16/16 12:00 11/16/16 12:00 11/16/16 12:00 11/16/16 12:00 Microbiology 11/14/16 19:35 Urine Culture - Final Urine,Clean Catch Gram Neg Rods 2 Or More Types Laboratory Results 11/16/16 04:10 11/16/16 04:10 11/15/16 11/16/16 11/17/16 05:59 05:59 05:59 Intake Total 8183 2349 Output Total 1225 2730 300 Balance 6953 -381 -300 PT 13.1 SEC (12.0-15.0) 11/14/16 13:15 INR 1.00 (0.83-1.16) 11/14/16 13:15 - Physical Exam Constitutional: no apparent distress, appears nourished, not in pain, No uncomfortable Cardiovascular: systolic murmur ( 2/6 systolic at the sternum), No irregularly irregular, No tachycardia, No edema Respiratory: inspiratory crackles ( bilateral bases up to detention posteriorly), No clear to auscultation, No expiratory wheeze, No bronchial breath sounds Gastrointestinal: normoactive bowel sounds, soft, non-tender abdomen, no palpable masses, distension ( mild) Neurologic: AAOx3 Psychiatric: interacting appropriately, not anxious, not encephalopathic, thought process linear ICD10 Worksheet Patient Problems: Problems Problem Status Onset Urinary tract infection Acute Septic shock Acute
[2016-11-16] MEDS ORDERED: POTASSIUM CL 20 MEQ TAB PO ONE (16:03)
--- NOTE | 2016-11-16 17:15 | PCMIDPN ---
Assessment/Plan: Assessment: E coli bacteremia and sepsis secondary to urinary tract source. Patient on ceftriaxone monotherapy and sensitivity panel reveals a mostly pansensitive organism. Plan to treat for 10 days total. Suspect that transition to oral ciprofloxacin or Levaquin would be reasonable upon discharge. Will check blood cultures for documented clearance. Plan: 1. Continue IV ceftriaxone. 2. Recheck blood cultures. 3. Follow clinical course. 4. Anticipate duration of approximately 10 days for treatment. 11/16/16 17:52 11/16/16 17:53 11/16/16 17:53 Subjective: Patient is resting comfortably in his hospital bed. He does not have any new complaints. States he feels much better than he did yesterday or the day before. No new fevers or chills. Objective: Ceftriaxone #2 Vital Signs Temp Pulse Resp BP Pulse Ox 37.2 C 73 22 H 116/63 96 11/16/16 07:00 11/16/16 15:15 11/16/16 15:15 11/16/16 15:15 11/16/16 15:15 Microbiology 11/14/16 19:35 Urine Culture - Final Urine,Clean Catch Gram Neg Rods 2 Or More Types Laboratory Results 11/16/16 04:10 11/16/16 04:10 11/15/16 11/16/16 11/17/16 05:59 05:59 05:59 Intake Total 8118 2349 Output Total 1229 3656 850 Balance 6953 -381 -850 - Physical Exam General Appearance: WD/WN, alert, no apparent distress, non-toxic Respiratory: lungs clear, normal breath sounds Cardiac/Chest: regular rate, rhythm, No tachycardia Skin: normal color, warm/dry, No rash Neuro/Psych: alert, normal mood/affect, oriented x 3 ICD10 Worksheet Patient Problems: Problems Problem Status Onset Septic shock Acute Urinary tract infection Acute
[2016-11-17 05:42] LABS: HEMATOCRIT 34.1 % (40.0-51.0); HEMOGLOBIN 11.6 g/dL (13.7-17.5); MEAN CELL HEMOGLOBIN 30.9 pg (27.9-34.1); MEAN CELL VOLUME 90.7 fL (81.5-99.8); RED BLOOD CELL COUNT 3.76 10^6/uL (4.40-6.38); RED CELL DISTRIBUTION WIDTH 13.4 % (11.5-15.2)
[2016-11-17 06:00] LABS: ANION GAP 8 mEq/L (8-16); CALCIUM 8.1 mg/dL (8.5-10.4); CARBON DIOXIDE 26 mEq/l (22-31); CHLORIDE 105 mEq/L (97-110); CREATININE 0.8 mg/dL (0.7-1.3); GLOMERULAR FILTRATION RATE > 60; GLUCOSE 90 mg/dL (70-100); MAGNESIUM 1.8 mg/dL (1.6-2.3); POTASSIUM 3.8 mEq/L (3.5-5.2); SODIUM 139 mEq/L (134-144)
[2016-11-17] MEDS: buPROPion XL 150 MG TAB PO SCH (08:59)
[2016-11-17] MEDS: ESCITALOPRAM OXALATE 10 MG TAB PO SCH (08:59)
[2016-11-17] MEDS: CHOLECALCIFEROL VIT D3 2,000 UNITS TAB/CAP PO SCH (08:59)
[2016-11-17] MEDS: CYANO/VITAMIN B12 1000 MCG TAB PO SCH (08:59)
[2016-11-17] MEDS: PRESERVISION AREDS2 FORMULA EYE VIT 1 EACH PO SCH (08:59)
[2016-11-17] MEDS: TAMSULOSIN HCL 0.4 MG CAP PO SCH (08:59)
[2016-11-17] MEDS: ASPIRIN EC 81 MG TAB PO SCH (08:59)
[2016-11-17] MEDS: ENOXAPARIN 40 MG/0.4 ML SYR SC SCH (08:59)
--- NOTE | 2016-11-17 13:00 | PCMIDPN ---
Assessment/Plan: 1. E coli bacteremia secondary to urinary source ( patient with underlying long- standing BPH): The patient denies any antecedent symptoms that would be suggestive of an acute bacterial prostatitis. ( No perineal pain/ penile pain) No previous history of bacterial prostatitis. Suspect recurrent urinary tract infections are secondary to ongoing obstructive pathology. Reviewed CT scan with Dr. Gonsalez ; no evidence of prostatic abscess. He reported that it is impossible to comment on prostatitis with a CT scan. For now, will treat with 2 weeks of a fluoroquinolone; the patient will then be reassessed by Dr. Newell as an outpatient. Patient reports that he has not had his PSA checked in quite some time given the controversy surrounding this test. Clinically, the patient does not have symptoms of acute bacterial prostatitis as outlined above. Therefore, will not "muddy the stevenson" and will *not* check a PSA at this point in time. (Can be elevated with acute bacterial prostatitis). Stop date for antibiotics is November 30. Subjective: transferred out of the ICU. Feeling much better. Denies any symptoms suggestive of acute bacterial prostatitis. No diarrhea on the antibiotics. No rash. Objective: Ceftriaxone 1 g IV daily day 3 T-max 37.2degrees Vital Signs Temp Pulse Resp BP Pulse Ox 37.2 C 81 21 H 120/67 94 11/17/16 11:04 11/17/16 11:04 11/17/16 11:04 11/17/16 11:04 11/17/16 11:04 Microbiology 11/14/16 19:35 Urine Culture - Final Urine,Clean Catch Gram Neg Rods 2 Or More Types Laboratory Results 11/17/16 05:30 11/17/16 05:30 11/16/16 11/17/16 11/18/16 05:59 05:59 05:59 Intake Total 5666 558 660 Output Total 9870 1600 225 Balance -381 910 602 repeat blood cultures have sterilized - Physical Exam General Appearance: alert, no apparent distress EENT: pharynx normal Respiratory: lungs clear Abdomen: non-tender, soft Skin: No rash ICD10 Worksheet Patient Problems: Problems Problem Status Onset Septic shock Acute Urinary tract infection Acute
[2016-11-17] MEDS ORDERED: FUROSEMIDE 20 MG/2 ML VIAL IVP ONE (13:22)
--- NOTE | 2016-11-17 13:26 | HOSPPROG ---
Hospitalist Progress Note Assessment/Plan: assessment: 81-year-old male presents with septic shock in the setting of E coli bacteremia c/b acute diastolic CHF Plan: 1. Septic shock. Present on admission, evidenced by a SOFA score of 6 (meeting all Sepsis-3/ICDS-3 criteria) w/ lactic acid of 4.7, mean arterial pressure 53 a systolic of 81, requiring Levophed secondary to autonomic dysregulation in the setting of infection, notably E coli bacteremia 2. E coli bacteremia. Most likely secondary to urinary source -d/w Dr. Waldrop, she recommends 14 days from neg Cx date of Levofloxacin, start tomorrow AM -monitor Cx for additional 24hrs to ensure clearance 3. Acute diastolic congestive heart failure exacerbation. Worsening overnight w / increasing o2 requirements and diffuse interstitial infiltrates on CXR -diuresed 900cc o/n, give another dose of IV lasix today given ongoing crackles on exam 4. Atrial fibrillation. Acute, transient RVR, likely provoked in setting of infxn/CHF -no recurrence o/n -not requiring dillan blocking agent, will discuss anticoagulation w/ patient 5. BPH. Chronic, patient's primary urologist is Dr. Berg and a cystoscopy was performed approximately 1 month ago -his urinary tract infection is most likely secondary to his underlying urinary retention and not recent instrumentation as I would suspect that would lead to a more rapid infection 6. Urinary tract infection. Evidenced by positive urinalysis, most likely secondary to urinary retention, monitor urine culture, will most likely grow E coli 7. Acute Hypoxic Respiratory Failure. Evidenced by SpO2 86% on 15L facemask o2 w / visibly labored breathing and symptomatic shortness of breath, 2/2 acute worsening of CHF - improving s/p diuresis - remains on 1-3L NC, no prior o2 requirement - get room air o2 sat - cont wean o2 Diet. Regular Prophylaxis. High risk patient, Lovenox 40 Code. Full Disposition. Anticipated discharge uncertain this time. Subjective: Patient reports he is urinating frequently Objective: Vital Signs Temp Pulse Resp BP Pulse Ox 37.2 C 81 21 H 120/67 94 11/17/16 11:04 11/17/16 11:04 11/17/16 11:04 11/17/16 11:04 11/17/16 11:04 Microbiology 11/14/16 19:35 Urine Culture - Final Urine,Clean Catch Gram Neg Rods 2 Or More Types Laboratory Results 11/17/16 05:30 11/17/16 05:30 11/16/16 11/17/16 11/18/16 05:59 05:59 05:59 Intake Total 2349 688 660 Output Total 2730 1600 225 Balance -381 -912 435 PT 13.1 SEC (12.0-15.0) 11/14/16 13:15 INR 1.00 (0.83-1.16) 11/14/16 13:15 - Pending Discharge Pending Discharge Within 24 Hours: Yes Pending Discharge Date: 11/18/16 Pending Discharge Time: 11:00 - Physical Exam Constitutional: no apparent distress, appears nourished, not in pain Cardiovascular: systolic murmur (2/6 at apex and sternum), No irregularly irregular, No tachycardia, No edema Respiratory: inspiratory crackles, No reduced air movement, No expiratory wheeze , No bronchial breath sounds Gastrointestinal: normoactive bowel sounds, soft, non-tender abdomen, no palpable masses Neurologic: AAOx3, sensation intact bilaterally Psychiatric: interacting appropriately, not anxious, not encephalopathic, thought process linear ICD10 Worksheet Patient Problems: Problems Problem Status Onset Urinary tract infection Acute Septic shock Acute
[2016-11-17] MEDS: ACETAMINOPHEN 325 MG TAB PO PRN (19:26)
[2016-11-18 04:41] LABS: ABSOLUTE IMMATURE GRANULOCYTES 0.07 10^3/uL (0.00-0.10); ADD DIFF? NO; ADD MORPH? NO; ADD SCAN? NO; ATYPICAL LYMPHOCYTE FLAG 0 (0-99); FRAGMENT RBC FLAG 0 (0-99); HEMATOCRIT 33.9 % (40.0-51.0); HEMOGLOBIN 11.7 g/dL (13.7-17.5); LEFT SHIFT FLG 20 (0-99); LIPEMIA HEMOLYSIS FLAG 90 (0-99); MEAN CELL HEMOGLOBIN 31.2 pg (27.9-34.1); MEAN CELL HEMOGLOBIN CONCENTR. 34.5 g/dL (32.4-36.7); MEAN CELL VOLUME 90.4 fL (81.5-99.8); MEAN PLATELET VOLUME 10.1 fL (8.7-11.7); PLATELET CLUMPS FLAG 0 (0-99); PLATELET COUNT 127 10^3/uL (150-400); RED BLOOD CELL COUNT 3.75 10^6/uL (4.40-6.38); RED CELL DISTRIBUTION WIDTH 13.3 % (11.5-15.2)
[2016-11-18 04:52] LABS: ANION GAP 11 mEq/L (8-16); CALCIUM 8.7 mg/dL (8.5-10.4); CARBON DIOXIDE 24 mEq/l (22-31); CHLORIDE 103 mEq/L (97-110); CREATININE 0.7 mg/dL (0.7-1.3); GLOMERULAR FILTRATION RATE > 60; GLUCOSE 97 mg/dL (70-100); MAGNESIUM 1.8 mg/dL (1.6-2.3); POTASSIUM 3.8 mEq/L (3.5-5.2); SODIUM 138 mEq/L (134-144)
--- NOTE | 2016-11-18 10:06 | PDHOMEO2F ---
Home Oxygen Face to Face Home Orders: I certify that a physician or a nurse practitioner or physician's enrichment assistant has had a [id number] encounter with this patient on the date of this order due to the diagnosis listed, which relates to the primary reason the patient requires home oxygen. Alternative treatments have been tried, or considered, and deemed ineffective. It is anticipated that supplemental oxygen will result in improvement with treatment. Home oxygen qualifying diagnosis: Diastolic CHF SpO2 on room air (%): 87 Frequency of home oxygen needed: continuous Home oxygen liters per minute: 2 Home oxygen delivery device: nasal cannula Concentrator: Yes E-tanks for mobility and back up: Yes If ordering portable O2, is the patient mobile in the home?: Yes I certify that, based on these findings, the home oxygen is medically necessary for this patient for the following length of time. Length of time home oxygen needed: 1 month
[2016-11-18] MEDS ORDERED: FUROSEMIDE 20 MG/2 ML VIAL IVP ONE (10:08)
[2016-11-18] MEDS ORDERED: MAGNESIUM CITRATE 300 ML BOTTLE PO ONE (10:08)
[2016-11-18] MEDS: PRESERVISION AREDS2 FORMULA EYE VIT 1 EACH PO SCH (10:45)
[2016-11-18] MEDS: buPROPion XL 150 MG TAB PO SCH (10:45)
[2016-11-18] MEDS: CYANO/VITAMIN B12 1000 MCG TAB PO SCH (10:45)
[2016-11-18] MEDS: CHOLECALCIFEROL VIT D3 2,000 UNITS TAB/CAP PO SCH (10:45)
[2016-11-18] MEDS: ASPIRIN EC 81 MG TAB PO SCH (10:45)
[2016-11-18] MEDS: TAMSULOSIN HCL 0.4 MG CAP PO SCH (10:45)
[2016-11-18] MEDS: ENOXAPARIN 40 MG/0.4 ML SYR SC SCH (10:47)
[2016-11-18] MEDS: ESCITALOPRAM OXALATE 10 MG TAB PO SCH (10:47)
[2016-11-18 11:26] VITALS: RESP 18
--- NOTE | 2016-11-18 13:27 | PDDCSUM ---
Discharge Summary Discharge Summary: DISCHARGE SUMMARY FOLLOW-UP ITEMS: Reassess oxygen needs a PCP appointment DATE OF ADMISSION: 11/14/2016 DATE OF DISCHARGE: 11/18/2016 DISCHARGE DIAGNOSES: 1. Septic shock present on admission 2. E coli bacteremia 3. Acute diastolic congestive heart failure 4. Acute atrial fibrillation 5. Chronic BPH 6. Acute urinary tract infection 7. Acute hypoxic respiratory failure 8. Suspected atelectasis CONSULTATIONS: Infectious Disease, Pulmonary Critical Care PROCEDURES / IMAGIN/18 central line insertion CHIEF COMPLAINT: Acute rigors SUBJECTIVE: Patient is feeling well at time of discharge, he reports his breathing is substantially improved PHYSICAL EXAM ON DISCHARGE: Systolic blood pressure is 110, heart rate 70, afebrile overnight, satting 87% on room air at rest, faint inspiratory crackles in the bilateral bases but improved from day prior, no JVD, heart rate is regular with regular rhythm and 2 /6 systolic murmur at the sternum and apex, no lower extremity edema, bowel sounds are present, abdomen is soft nontender nondistended LABS ON DISCHARGE: Creatinine 0.7, potassium 3.8, white blood cell count 6800, hemoglobin 11.7, blood cultures are negative from 11/16 HOSPITAL COURSE BY PROBLEM: 1. Septic shock. Present on admission, evidenced by sofa score of 6 with meets all sepsis-3 criteria (lactic acid of 4.7, mean arterial pressure 53, required Levophed). This demonstrated autonomic dysregulation in the setting of infection notably E coli bacteremia. He received empiric IV fluids, pressors, IV antibiotics and was treated in the intensive care unit. 2. E coli bacteremia. Most likely secondary to urinary source, should receive 14 days of antibiotics from negative culture date, has been transitioned to oral fluoroquinolones given sensitivity profile. Other possible sources include prostatitis although the patient has not endorsed any specific symptoms of this. He should receive outpatient urologic reassessment by Dr. Berg after discharge. He will follow up with Dr. Newell on November 28. 3. Acute diastolic congestive heart failure exacerbation. Evidenced by diffuse pulmonary infiltrates, significant hypoxia, secondary to IV fluids received with treatment for septic shock. Patient received IV diuretics and diuresed substantially. His oxygen requirements were declining at time of discharge. His echocardiogram demonstrated diastolic dysfunction but no systolic dysfunction. Given that his oxygen requirements have declined and he is demonstrating minimal evidence of volume overload on physical exam, will not be discharging him on diuretic an he will most likely naturese over the next week. Will receive 1 dose of IV Lasix prior to discharge. 4. Acute atrial fibrillation. Transient rapid ventricular response, likely provoked in the setting of infection and CHF. Patient has no prior history of atrial fibrillation and he has had no recurrence during this hospitalization. Consequently, the patient will not require ongoing systemic anticoagulation and does not require dillan blocking agents because his heart rate is currently controlled between 60 and 80 and his rhythm is normal sinus mechanism. After he has completely recovered from his bacteremia, would recommend his primary care provider refer him to the [facility] for reassessment and potential outpatient loop recorder. 5. Chronic BPH. Patient's primary urologist performed a cystoscopy approximately 1 month ago. Addendum believe that his urinary tract infection is secondary to complication from a device given that is been least 1 month since that procedure and I would anticipate that his infection would have manifested much sooner than it did if it were indeed connected. The urinary tract infection is more likely secondary to underlying urinary retention and he will be following up with his urologist after his acute episode has completely resolved. He will continue on his tamsulosin. 6. Acute urinary tract infection. Evidenced by positive urinalysis, positive urine culture, most likely secondary to urinary retention as noted above. 7. Acute hypoxic respiratory failure. Evidenced by SpO2 of 86% on 15 L face mask oxygen requiring ICU level of care, with visibly labored breathing and symptomatic shortness of breath, most likely secondary to acute worsening CHF. His chest x-ray at that time demonstrated worsening pulmonary infiltrates. He was diuresed aggressively and his oxygen requirements decline. At the time of discharge, his oxygen requirements have been weaned to 2 L nasal cannula, satting 87% at rest but improving with supplemental oxygen. This will be arranged for him and he will have his oxygen levels reassessed as an outpatient through primary care provider office. 8. Suspected atelectais. I suspect there is also a component of atelectasis given that his oxygen saturation does improve with deep inspiration although he unable to maintain saturations greater than 90% consistently. Although we have recommended incentive spirometer and deep breathing, believe that the risk of discharging home without supplemental oxygen is too great given that he is recently recovering from CHF and his risk of hypoxia while supine at night is significant, and potentially result in hypoxia related mental status changes, weakness, and mechanical falls. DISCHARGE MEDICATIONS: Please see official discharge medication reconciliation sheet in chart , levofloxacin 750 mg once daily with stop date 11/30, continuation of all other home medications. DISCHARGE INSTRUCTIONS: Please follow up with primary care provider this week for reassessment of oxygen needs, follow up with Dr. Newell on 11/28 at 10:30 a.m., follow up with Dr. Berg thereafter. TIME SPENT: Greater than 30 minutes were spent on direct patient care, as well as discharge planning and preparation.
[2016-11-18 16:01] VITALS: BP 149/81; PULSE 82; TEMP 98.2; O2SAT 90
== END 2016-11-18 16:03 | disposition home or self-care (01) | DRG 871 ==
LOC: F2N 16:49 → F2W 11-17 10:56
PROVIDERS: ADMIT Internal Medicine; ATTEND Internal Medicine
PROC: 02HV33Z Insertion of Infusion Device into Superior Vena Cava, Percutaneous Approach (ICD-10-PCS; principal; 2016-11-14)
DX: A41.51 Sepsis due to Escherichia coli [E. coli] (principal); R65.21 Severe sepsis with septic shock; N39.0 Urinary tract infection, site not specified; N40.1 Benign prostatic hyperplasia with lower urinary tract symptoms; N13.8 Other obstructive and reflux uropathy; R33.8 Other retention of urine; I50.31 Acute diastolic (congestive) heart failure; I48.91 Unspecified atrial fibrillation; J96.01 Acute respiratory failure with hypoxia; J98.11 Atelectasis; E87.2 Acidosis; Z85.47 Personal history of malignant neoplasm of testis; F32.9 Major depressive disorder, single episode, unspecified
CPT/HCPCS: 96374; 97116-GP; 97161-GP; 97165-GO; 97530-GP; 97535-GO; G8978-GP-CI; G8979-GP-CH; G8987-GO-CK; G8988-GO-CH; J0696; J1650; J1940; J2405; J3475; Q9967

== ENCOUNTER → 2017-03-07 | Outpatient (CLI) | payer OTHER | LOC: FIMAGING 18:42 | PROVIDERS: ATTEND Psychiatry & Neurology Neurology | DX: R25.1 Tremor, unspecified (principal); G31.9 Degenerative disease of nervous system, unspecified; R90.82 White matter disease, unspecified ==

== ENCOUNTER 2017-07-10 18:56 | Inpatient (IN) | payer OTHER ==
[2017-07-10] MEDS ORDERED: NS 2,400 ML IV ONE (19:50)
--- NOTE | 2017-07-10 19:54 | EDPHY ---
H & P Stated Complaint: COUGH X2 DAY, FALL X3, CONFUSION TODAY, WORRY OF SEPSIS Time Seen by Provider: 07/10/17 19:43 HPI/ROS: CHIEF COMPLAINT: Confusion, found down HISTORY OF PRESENT ILLNESS: Patient is an 82-year-old man whose daughter states that he is confused and having chills and was found down at his independent living center. She states that he almost fell 3 times today. He also feels generally weak. She states that this is reminiscent of previous episodes of urosepsis requiring ICU admission. This has happened multiple times in the past however not since his green light prostate surgery last summer. He also has a nonproductive cough for the last 3 days that he states is causing rib pain. No shortness of breath. No chest pain. REVIEW OF SYSTEMS: Constitutional: denies: chills, fever, recent illness, recent injury EENTM: denies: blurred vision, double vision, nose congestion Respiratory: See HPI Cardiac: denies: chest pain, irregular heart rate, lightheadedness, palpitations Gastrointestinal/Abdominal: denies: abdominal pain, diarrhea, nausea, vomiting, blood streaked stools Genitourinary: denies: dysuria, frequency, hematuria, pain Musculoskeletal: denies: joint pain, muscle pain Skin: denies: lesions, rash, jaundice, bruising Neurological: See HPI denies: headache, numbness, paresthesia, tingling, dizziness, weakness Hematologic/Lymphatic: denies: blood clots, easy bleeding, easy bruising Immunologic/allergic: denies: HIV/AIDS, transplant EXAM: GENERAL: Well-appearing, well-nourished and in no acute distress. HEAD: Atraumatic, normocephalic. EYES: Pupils equal round and reactive to light, extraocular movements intact, sclera anicteric, conjunctiva are normal. ENT: TMs normal, nares patent, oropharynx clear without exudates. Moist mucous membranes. NECK: Normal range of motion, supple without lymphadenopathy or JVD. LUNGS: Breath sounds clear to auscultation bilaterally and equal. No wheezes rales or rhonchi. HEART: Regular rate and rhythm without murmurs, rubs or gallops. ABDOMEN: Soft, nontender, normoactive bowel sounds. No guarding, no rebound. No masses appreciated. BACK: No CVA tenderness, no spinal tenderness, step-offs or deformities EXTREMITIES: Normal range of motion, no pitting or edema. No clubbing or cyanosis. NEUROLOGICAL: Cranial nerves II through XII grossly intact. Normal speech, normal gait. 5/5 strength, normal movement in all extremities, normal sensation PSYCH: Normal mood, normal affect. SKIN: Warm, dry, normal turgor, no visible rashes or lesions. Source: Patient Exam Limitations: No limitations - Medical/Surgical History Hx Asthma: No Hx Chronic Respiratory Disease: No Hx Diabetes: No Hx Cardiac Disease: No Hx Renal Disease: No Hx Cirrhosis: No Hx Alcoholism: No Hx HIV/AIDS: No Hx Splenectomy or Spleen Trauma: No Other PMH: chronic recurrent UTIs, PROSTATE SURG, SEPSIS, APPY, TESTICULAR CA/ SURG, SHOULDER SURG - Family History Significant Family History: No pertinent family hx - Social History Smoking Status: Former smoker Alcohol Use: None Constitutional: Initial Vital Signs Temperature (C) 37.6 C 07/10/17 19:25 Heart Rate 100 07/10/17 19:25 Respiratory Rate 22 H 07/10/17 19:25 Blood Pressure 128/76 H 07/10/17 19:25 O2 Sat (%) 90 L 07/10/17 19:25 O2 Delivery Mode Nasal Cannula O2 (L/minute) 3 Allergies/Adverse Reactions: No Known Allergies Allergy (Unverified 07/10/17 19:29) Home Medications: Medication Instructions Recorded Cholecalciferol Vit D3 [Vitamin D3 2,000 units PO DAILY 11/14/16 2000 units tab (OTC)] Cyanocobalamin (Vitamin B-12) 1,000 mcg PO DAILY 11/14/16 [B-12] Escitalopram Oxalate [Lexapro] 20 mg PO DAILY 11/14/16 buPROPion SR [Wellbutrin 150mg SR 150 mg PO DAILY 07/10/17 (*)] Medical Decision Making - Diagnostics Imaging: Discussed imaging studies w/ pararescue manager Radiologist ED Course/Re-evaluation: 9:40 p.m. The patient has a severe cough. He is slightly hypoxic. He is weak and according to his daughter slightly confused. He denies headache or chest pain. I will admit to the hospital service. I suspect viral infection. 10:15 p.m. I discussed the case with hospitalist will admit. Differential Diagnosis: Partial list of the Differential diagnosis considered include but were not limited to; bronchitis, pneumonia, urinary tract infection and although unlikely based on the history and physical exam, I also considered meningitis, sepsis, CVA. - Data Points Laboratory Results: Laboratory Results 07/11/17 07:27 07/11/17 07:27 Microbiology Results: MICROBIOLOGY 07/10/17 20:35 Unspecified Urine Culture - Final Medications Given: Acetaminophen (Tylenol) 650 mg PO Q4HRS PRN PRN Reason: Pain, Mild/Fever, Can Take PO Stop: 01/06/18 22:34 Last Admin: 07/11/17 13:28 Dose: 650 mg Benzonatate (Tessalon Pearles) 200 mg PO TID PRN PRN Reason: Cough, Mild Stop: 01/07/18 04:55 Last Admin: 07/13/17 08:05 Dose: 200 mg Bupropion HCl (Wellbutrin Sr) 150 mg PO DAILY [facility] Stop: 01/08/18 08:59 Last Admin: 07/13/17 08:07 Dose: 150 mg Enoxaparin Sodium (Lovenox) 40 mg SC DAILY [facility] Stop: 01/07/18 08:59 Last Admin: 07/13/17 08:07 Dose: 40 mg Escitalopram Oxalate (Lexapro) 20 mg PO DAILY [facility] Stop: 01/08/18 08:59 Last Admin: 07/13/17 08:06 Dose: 20 mg Metoprolol Tartrate (Lopressor) 12.5 mg PO BID [facility] Stop: 01/08/18 18:59 Last Admin: 07/13/17 08:06 Dose: 12.5 mg Oseltamivir Phosphate (Tamiflu) 75 mg PO BIDMEAL [facility] Stop: 07/15/17 18:01 Last Admin: 07/13/17 08:06 Dose: 75 mg Discontinued Medications Acetaminophen/Codeine Phosphate (Tylenol #3) 2 tab PO EDNOW ONE Stop: 07/10/17 22:35 Last Admin: 07/10/17 22:37 Dose: 2 tab Aspirin Buffered (Aspirin Ec) 325 mg PO DAILY [facility] Stop: 01/08/18 13:14 Last Admin: 07/13/17 08:07 Dose: 325 mg Sodium Chloride (Ns) 2,400 mls @ 4,800 mls/hr 30 ml/kg infuse over 30 min ( 2400 ml) IV EDNOW ONE PRN Reason: Protocol Stop: 07/10/17 20:19 Last Admin: 07/10/17 20:18 Dose: 2,400 mls Sodium Chloride (Ns) 500 mls @ 0 mls/hr IV ONCE ONE PRN Reason: Wide Open Stop: 07/12/17 01:22 Last Admin: 07/12/17 01:29 Dose: 500 mls Metoprolol Tartrate (Lopressor) 25 mg PO ONCE ONE Stop: 07/12/17 02:01 Last Admin: 07/12/17 02:18 Dose: 25 mg Departure - Departure Disposition: [facility] Acute Clinical Impression: Hypoxia Acute bronchitis Qualifiers: Bronchitis organism: unspecified organism Qualified Code(s): J20.9 - Acute bronchitis, unspecified Condition: Fair
[2017-07-10 19:56] LABS: PLATELET COUNT 152 10^3/uL (150-400)
[2017-07-10 20:13] LABS: INR 0.99 (0.83-1.16); PROTIME(PATIENT) 13.3 SEC (12.0-15.0)
[2017-07-10] MEDS ORDERED: ACETAMINOPHEN/CODEINE 300/30MG TAB PO ONE (22:34)
[2017-07-10] MEDS ORDERED: ONDANSETRON DISINTEGRATING 4 MG TAB PO PRN (22:35)
[2017-07-10] MEDS ORDERED: ONDANSETRON 4 MG/2 ML VIAL IVP PRN (22:35)
[2017-07-10] MEDS ORDERED: ACETAMINOPHEN/CODEINE 300/30MG TAB ONE (22:35)
[2017-07-10] MEDS ORDERED: ALBUTEROL 3 ML DEYVIAL IH PRN (22:35)
--- NOTE | 2017-07-11 02:06 | PDGENHP ---
History and Physical - Chief Complaint Falls, weakness - History of Present Illness 82 yo M w/ hx of testicular CA, recurrent UTIs, and diastolic dysfunction presents with cough and fatigue. Patient fell several times at his independent living center today. He complains of cough productive of white sputum and severe fatigue for 2-3 days. He denies other infectious ROS. Work-up in the ED mostly unremarkable aside from mild hypoxia. He does not meet sepsis criteria. History Information - Allergies/Home Medication List Allergies/Adverse Reactions: No Known Allergies Allergy (Unverified 07/10/17 19:29) Home Medications: Cholecalciferol Vit D3 [Vitamin D3 2000 units tab (OTC)] 2,000 units PO DAILY [Last Taken 07/10/17] Cyanocobalamin (Vitamin B-12) [B-12] 1,000 mcg PO DAILY 11/14/16 [Last Taken ] Escitalopram Oxalate [Lexapro] 20 mg PO DAILY 11/14/16 [Last Taken 07/10/17] buPROPion SR [Wellbutrin 150mg SR (*)] 150 mg PO DAILY 07/10/17 [Last Taken ] I have personally reviewed and updated: family history, medical history - Past Medical History cancer, CHF - Surgical History Reports: appendectomy Additional surgical history: Prostate surgery - Family History Additional family history: Asked, denies - Social History Smoking Status: Never smoked Alcohol Use: None Review of Systems Review of Systems: ROS: 10pt was reviewed & negative except for what was stated in HPI & below Physical Exam Physical Exam: Temp Pulse Resp BP Pulse Ox 37.2 C 83 20 116/64 91 L 07/11/17 00:48 07/11/17 00:48 07/11/17 00:48 07/11/17 00:48 07/11/17 00:48 O2 (L/minute) 2 Constitutional: no apparent distress, not in pain Eyes: PERRL, EOMI Ears, Nose, Mouth, Throat: moist mucous membranes, no oral mucosal ulcers Cardiovascular: regular rate and rhythym, systolic murmur Respiratory: no respiratory distress, reduced air movement Gastrointestinal: normoactive bowel sounds, soft, non-tender abdomen Skin: warm Musculoskeletal: full muscle strength, no muscle tenderness Neurologic: CN II-XII Intact, other (A&Ox2) Lab Data & Imaging Review 07/10/17 19:46 07/10/17 19:46 WBC 7.41 10^3/uL (3.80-9.50) 07/10/17 19:46 RBC 4.78 10^6/uL (4.40-6.38) 07/10/17 19:46 Hgb 15.1 g/dL (13.7-17.5) 07/10/17 19:46 Hct 42.7 % (40.0-51.0) 07/10/17 19:46 MCV 89.3 fL (81.5-99.8) 07/10/17 19:46 MCH 31.6 pg (27.9-34.1) 07/10/17 19:46 MCHC 35.4 g/dL (32.4-36.7) 07/10/17 19:46 RDW 13.3 % (11.5-15.2) 07/10/17 19:46 Plt Count 152 10^3/uL (150-400) 07/10/17 19:46 MPV 9.9 fL (8.7-11.7) 07/10/17 19:46 Neut % (Auto) 78.6 % (39.3-74.2) H 07/10/17 19:46 Lymph % (Auto) 6.7 % (15.0-45.0) L 07/10/17 19:46 [place] % (Auto) 12.4 % (4.5-13.0) 07/10/17 19:46 Eos % (Auto) 1.2 % (0.6-7.6) 07/10/17 19:46 Baso % (Auto) 0.7 % (0.3-1.7) 07/10/17 19:46 Nucleat RBC Rel Count 0.0 % (0.0-0.2) 07/10/17 19:46 Absolute Neuts (auto) 5.82 10^3/uL (1.70-6.50) 07/10/17 19:46 Absolute Lymphs (auto) 0.50 10^3/uL (1.00-3.00) L 07/10/17 19:46 Absolute Monos (auto) 0.92 10^3/uL (0.30-0.80) H 07/10/17 19:46 Absolute Eos (auto) 0.09 10^3/uL (0.03-0.40) 07/10/17 19:46 Absolute Basos (auto) 0.05 10^3/uL (0.02-0.10) 07/10/17 19:46 Absolute Nucleated RBC 0.00 10^3/uL (0-0.01) 07/10/17 19:46 Immature Gran % 0.4 % (0.0-1.1) 07/10/17 19:46 Immature Gran # 0.03 10^3/uL (0.00-0.10) 07/10/17 19:46 PT 13.3 SEC (12.0-15.0) 07/10/17 19:46 INR 0.99 (0.83-1.16) 07/10/17 19:46 APTT 28.4 SEC (23.0-38.0) 07/10/17 19:46 VBG Lactic Acid 1.4 mmol/L (0.7-2.1) 07/10/17 19:46 Sodium 136 mEq/L (135-145) 07/10/17 19:46 Potassium 4.2 mEq/L (3.5-5.2) 07/10/17 19:46 Chloride 101 mEq/L (97-110) 07/10/17 19:46 Carbon Dioxide 22 mEq/l (22-31) 07/10/17 19:46 Anion Gap 13 mEq/L (8-16) 07/10/17 19:46 BUN 17 mg/dL (7-23) 07/10/17 19:46 Creatinine 1.0 mg/dL (0.7-1.3) 07/10/17 19:46 Estimated GFR > 60 07/10/17 19:46 Glucose 107 mg/dL (70-100) H 07/10/17 19:46 Calcium 9.0 mg/dL (8.5-10.4) 07/10/17 19:46 Total Bilirubin 0.7 mg/dL (0.1-1.4) 07/10/17 19:46 Procalcitonin 0.12 ng/mL (0.02-0.10) H 07/10/17 19:46 Urine Color YELLOW 07/10/17 20:35 Urine Appearance CLEAR 07/10/17 20:35 Urine pH 5.0 (5.0-7.5) 07/10/17 20:35 Ur Specific [place] 1.024 (1.002-1.030) 07/10/17 20:35 Urine Protein NEGATIVE (NEGATIVE) 07/10/17 20:35 Urine Ketones NEGATIVE (NEGATIVE) 07/10/17 20:35 Urine Blood NEGATIVE (NEGATIVE) 07/10/17 20:35 Urine Nitrate NEGATIVE (NEGATIVE) 07/10/17 20:35 Urine Bilirubin NEGATIVE (NEGATIVE) 07/10/17 20:35 Urine Urobilinogen NEGATIVE EU (0.2-1.0) 07/10/17 20:35 Ur Leukocyte Esterase NEGATIVE (NEGATIVE) 07/10/17 20:35 Urine RBC 1-3 /hpf (0-3) 07/10/17 20:35 Urine WBC 3-5 /hpf (0-3) H 07/10/17 20:35 Ur Epithelial Cells TRACE /lpf (NONE-1+) 07/10/17 20:35 Urine Mucus 1+ /lpf (NONE-1+) 07/10/17 20:35 Urine Glucose NEGATIVE (NEGATIVE) 07/10/17 20:35 Imaging Review: Imaging Impressions Chest X-Ray 07/10/17 19:50 Impression: 1. Interval improved pulmonary vascular congestion. 2. No new intrathoracic abnormality. Assessment & Plan Assessment: 82 yo M w/ diastolic dysfunction and BPH presents with cough and fatigue likely 2/2 viral infection. Plan: 1. Suspected viral infection - Manifested by cough, fatigue, and weakness. WBC not elevated and procalcitonin in indeterminate range at 0.12. UA non- infectious and CXR without evidence of pneumonia. - Admit for observation - Respiratory PCR, blood cultures - s/p IVF, APAP PRN - Observe off of antibiotics for now 2. AHRF - Mild, likely 2/2 above. Currently requiring 2 L/min via NC. Incentive spirometry, wean as able. 3. BPH - S/p surgical intervention. No evidence of retention. 4. dCHF - Appears euvolemic, CXR without edema. Diet - Regular Code - Full Ppx - LMWH Dispo - Admit under observation status
[2017-07-11] MEDS: BENZONATATE 100 MG CAP PO PRN ×2 (05:15→13:28)
[2017-07-11] MEDS: ACETAMINOPHEN 325 MG TAB PO PRN ×2 (05:16→13:28)
[2017-07-11 07:50] LABS: PLATELET COUNT 119 10^3/uL (150-400)
--- NOTE | 2017-07-11 09:13 | HOSPPROG ---
Hospitalist Progress Note Assessment/Plan: # Influenza A - mild hypoxemia, no e/o consolidation on CXR, personally reviewed / interpreted. -start tamiflu -supportive care with O2, nebs, anti-tussives # AHRF - Mild, 2/2 above. Currently requiring 2 L/min via NC. -wean as able # BPH - S/p surgical intervention. No evidence of retention. # dCHF - Appears euvolemic to dry, CXR without edema. Diet - Regular Code - Full Ppx - LMWH Dispo - obs Subjective: Pt feels weak, coughing quite a bit. Wants breakfast. No CP. No SOB at rest. Low grade fever this am. Objective: Vital Signs Temp Pulse Resp BP Pulse Ox 36.8 C 76 18 110/59 L 93 07/11/17 08:08 07/11/17 08:08 07/11/17 08:08 07/11/17 08:08 07/11/17 08:08 Microbiology 07/11/17 05:40 Respiratory Panel (PCR) - Final Nasal, Sinus - Swab Influenza Virus Type A H3 Laboratory Results 07/11/17 07:27 07/11/17 07:27 07/10/17 07/11/17 07/12/17 05:59 05:59 05:59 Intake Total 1100 Output Total 500 Balance 600 PT 13.3 SEC (12.0-15.0) 07/10/17 19:46 INR 0.99 (0.83-1.16) 07/10/17 19:46 - Physical Exam Constitutional: no apparent distress Eyes: PERRL Ears, Nose, Mouth, Throat: moist mucous membranes Cardiovascular: regular rate and rhythym Respiratory: no respiratory distress, clear to auscultation Gastrointestinal: normoactive bowel sounds, soft, non-tender abdomen Skin: warm Musculoskeletal: full muscle strength Neurologic: AAOx3 Psychiatric: interacting appropriately ICD10 Worksheet Patient Problems: Problems Problem Status Onset Acute bronchitis Acute Hypoxia Acute Septic shock Acute Urinary tract infection Acute
[2017-07-11] MEDS: OSELTAMIVIR PHOSPHATE 75 MG CAP PO SCH ×2 (10:21→18:26)
[2017-07-11] MEDS: ENOXAPARIN 40 MG/0.4 ML SYR SC SCH (10:21)
--- NOTE | 2017-07-11 14:14 | ASMTCMCOM ---
CM Note CM Note Notes: Patient admitted for weakness and cough, was found to have Influenza A. He is being treated supportively with fluids and antivirals. Patient lives at the [facility] and is normally independent. Initial PT eval suggests that he may need SNF or home care d/t weakness. I called his daughter Nicole to ask about what his PLOF was but was unable to reach her. Case Management will follow for discharge planning. Date Signed: 07/11/2017 02:13 PM Electronically Signed By:Jamia Mills RN
--- NOTE | 2017-07-11 16:52 | PDMN ---
Medical Necessity Medical necessity: change to IP; los>2mn for influenza A, mild hypoxemia, cough , fatigue & AHRF; requires supplemental O2, nebs, and supportive care; comorbid dCHF, multiple falls DOA; per order and progress note 07/11/17
[2017-07-12] MEDS: BENZONATATE 100 MG CAP PO PRN ×3 (00:19→20:48)
[2017-07-12] MEDS ORDERED: NS 500 ML IV ONE (01:21)
--- NOTE | 2017-07-12 01:36 | CPEKG ---
Heart Rate: 140 RR Interval: 429 QRSD Interval: 82 QT Interval: 296 QTC Interval: 452 QRS [place]: 45 T Wave [place]: 97 EKG Severity - ABNORMAL ECG - EKG Impression: ATRIAL FIBRILLATION, V-RATE 82-183 EKG Impression: BORDERLINE T WAVE ABNORMALITIES Electronically Signed By: Richar Gambino 12-Jul-2017 06:03:21
[2017-07-12] MEDS ORDERED: METOPROLOL TARTRATE 25 MG TAB PO ONE (02:00)
--- NOTE | 2017-07-12 02:02 | HOSPPROG ---
Hospitalist Progress Note Assessment/Plan: XC: Patient with acute onset AF w/ RVR. He is asymptomatic w/ BP of 118/80. It seems he had transient AF w/ RVR during his last admission for infection as well. I will dose metoprolol 25 mg PO x1 and monitor on telemetry. Objective: Vital Signs Temp Pulse Resp BP Pulse Ox 36.6 C 83 18 143/68 H 94 07/11/17 20:30 07/11/17 20:30 07/11/17 20:30 07/11/17 20:30 07/11/17 20:30 07/10/17 07/11/17 07/12/17 05:59 05:59 05:59 Intake Total 100 Output Total 500 Balance -400 PT 13.3 SEC (12.0-15.0) 07/10/17 19:46 INR 0.99 (0.83-1.16) 07/10/17 19:46 ICD10 Worksheet Patient Problems: Problems Problem Status Onset Acute bronchitis Acute Hypoxia Acute Septic shock Acute Urinary tract infection Acute
[2017-07-12] MEDS: ESCITALOPRAM OXALATE 10 MG TAB PO SCH (08:23)
[2017-07-12] MEDS: ENOXAPARIN 40 MG/0.4 ML SYR SC SCH (08:23)
[2017-07-12] MEDS: buPROPion SR 150 MG TAB PO SCH (08:24)
[2017-07-12] MEDS: OSELTAMIVIR PHOSPHATE 75 MG CAP PO SCH ×2 (08:24→18:21)
[2017-07-12] MEDS ORDERED: NON-FORMULARY NEW DRUG (Escitalopram Oxalate [Lexapro] 20 MG) PO SCH (09:00)
--- NOTE | 2017-07-12 11:43 | HOSPPROG ---
Hospitalist Progress Note Assessment/Plan: # Influenza A - mild hypoxemia, no e/o consolidation on CXR, personally reviewed / interpreted. -cont tamiflu -supportive care with O2, nebs, anti-tussives # AHRF - Mild, 2/2 above. Currently requiring 2 L/min via NC. -wean as able # BPH - S/p surgical intervention. No evidence of retention. # dCHF - Appears euvolemic to dry, CXR without edema. # Paroxysmal A fib with RVR - had this during last hospitalization as well. Received metoprolol for rate control overnight, now in NSR. Chads-vasc 3. -likely needs anticoagulation given recurrent events, discussed PARQ. Pt wishes to discuss with his daughter, will give ASA for now. -start metoprolol 12.5 mg bid -monitor on tele Diet - Regular Code - Full Ppx - LMWH Dispo - change to inpatient for ongoing management of influenza, hypoxemia and recurrent A fib Subjective: Pt very sleepy, drifts off during conversation with me. Denies CP or SOB, coughing less. Feels a little better. Had rapid a fib overnight, denies symptoms of palpitations or dizziness. Had this previously as well. Objective: Vital Signs Temp Pulse Resp BP Pulse Ox 36.6 C 63 18 100/56 L 93 07/12/17 08:00 07/12/17 08:00 07/12/17 08:00 07/12/17 08:00 07/12/17 08:00 07/11/17 07/12/17 07/13/17 05:59 05:59 05:59 Intake Total 950 Output Total 850 Balance 100 PT 13.3 SEC (12.0-15.0) 07/10/17 19:46 INR 0.99 (0.83-1.16) 07/10/17 19:46 - Physical Exam Constitutional: no apparent distress Eyes: PERRL Ears, Nose, Mouth, Throat: moist mucous membranes Cardiovascular: irregularly irregular Respiratory: no respiratory distress, clear to auscultation Gastrointestinal: normoactive bowel sounds, soft, non-tender abdomen Skin: warm Musculoskeletal: full muscle strength Neurologic: AAOx3 Psychiatric: interacting appropriately ICD10 Worksheet Patient Problems: Problems Problem Status Onset Acute bronchitis Acute Hypoxia Acute Septic shock Acute Urinary tract infection Acute
[2017-07-12] MEDS: ASPIRIN EC 325 MG TAB PO SCH (14:52)
--- NOTE | 2017-07-12 15:51 | ASMTCMCOM ---
CM Note CM Note Notes: Chart reviewed for discharge planning purposes. Patient is having falls and weakness. Per PT reccomendation SNF rehab would be beneficial. Attempted to see patient but he is sleeping. Called daughter and left message to call CM to discuss POC. CM to follow Date Signed: 07/12/2017 03:50 PM Electronically Signed By:Poonam Parker RN
[2017-07-12] MEDS: METOPROLOL TARTRATE 25 MG TAB PO SCH ×3 (18:22→23:02)
[2017-07-13] MEDS: BENZONATATE 100 MG CAP PO PRN ×2 (08:05→18:13)
[2017-07-13] MEDS: OSELTAMIVIR PHOSPHATE 75 MG CAP PO SCH ×2 (08:06→18:13)
[2017-07-13] MEDS: ESCITALOPRAM OXALATE 10 MG TAB PO SCH (08:06)
[2017-07-13] MEDS: METOPROLOL TARTRATE 25 MG TAB PO SCH ×2 (08:06→20:16)
[2017-07-13] MEDS: ASPIRIN EC 325 MG TAB PO SCH (08:07)
[2017-07-13] MEDS: ENOXAPARIN 40 MG/0.4 ML SYR SC SCH (08:07)
[2017-07-13] MEDS: buPROPion SR 150 MG TAB PO SCH (08:07)
--- NOTE | 2017-07-13 10:22 | HOSPPROG ---
Hospitalist Progress Note Assessment/Plan: # AHRF 2/2 Influenza A - 2 LPM, no e/o consolidation on CXR, personally reviewed / interpreted. -cont tamiflu -supportive care with O2, wean as able -nebs, anti-tussives # BPH - S/p surgical intervention. No evidence of retention. # dCHF - Euvolemic, CXR without edema. # Paroxysmal A fib with RVR - had this during last hospitalization as well. Chads-vasc 3. -discussed risks/benefits of anti-coagulation given recurrent PAF. Pt agrees to Eliquis. -Metoprolol 12.5 bid for rate control, currently in sinus -monitor on tele, pers reviewed and interp Diet - Regular Code - Full Ppx - LMWH Dispo - cont inpt, PT/OT recommends SNF, likely d/c in am to SNF, CM working on options Subjective: Pt feels better this am. Less fatigued though quite weak, not moving much. Less cough. No fevers. Objective: Vital Signs Temp Pulse Resp BP Pulse Ox 36.9 C 66 16 117/69 95 07/13/17 08:04 07/13/17 08:06 07/13/17 08:04 07/13/17 08:06 07/13/17 08:04 07/12/17 07/13/17 07/14/17 05:59 05:59 05:59 Intake Total 950 350 Output Total 850 1150 Balance 100 -800 PT 13.3 SEC (12.0-15.0) 07/10/17 19:46 INR 0.99 (0.83-1.16) 07/10/17 19:46 - Physical Exam Constitutional: no apparent distress Eyes: PERRL Ears, Nose, Mouth, Throat: moist mucous membranes Cardiovascular: regular rate and rhythym Respiratory: no respiratory distress, clear to auscultation Gastrointestinal: normoactive bowel sounds, soft, non-tender abdomen Skin: warm Musculoskeletal: full muscle strength Neurologic: AAOx3 Psychiatric: interacting appropriately ICD10 Worksheet Patient Problems: Problems Problem Status Onset Acute bronchitis Acute Hypoxia Acute Septic shock Acute Urinary tract infection Acute
--- NOTE | 2017-07-13 11:10 | ASMTCMCOM ---
CM Note CM Note Notes: Spoke with patient about recommendations to discharge to a SNF. He is amenable to this plan. We talked about facilities, and he requests a referral to [facility]. I sent the referral, and pending bed availability, patient should be able to discharge there tomorrow. I asked him to let me know if either he or his family have another facility they'd like us to pursue. Current Discharge plan: [facility] Date Signed: 07/13/2017 11:09 AM Electronically Signed By:Jamia Mills RN
[2017-07-14] MEDS ORDERED: APIXABAN 5 MG TAB PO SCH (09:00)
[2017-07-14] MEDS: OSELTAMIVIR PHOSPHATE 75 MG CAP PO SCH (10:12)
[2017-07-14] MEDS: ESCITALOPRAM OXALATE 10 MG TAB PO SCH (10:12)
[2017-07-14] MEDS: METOPROLOL TARTRATE 25 MG TAB PO SCH (10:13)
[2017-07-14] MEDS: BENZONATATE 100 MG CAP PO PRN (10:13)
[2017-07-14] MEDS: buPROPion SR 150 MG TAB PO SCH (10:13)
--- NOTE | 2017-07-14 10:58 | PDIAF ---
- Diagnosis Diagnosis: acute resp failure, influenza A Code Status: Full Code - Medication Management Discharge Medications: Medications to Continue on Transfer Cholecalciferol Vit D3 [Vitamin D3 2000 units tab (OTC)] 2,000 units PO DAILY [Last Taken 07/10/17] Cyanocobalamin (Vitamin B-12) [B-12] 1,000 mcg PO DAILY 11/14/16 [Last Taken ] Escitalopram Oxalate [Lexapro] 20 mg PO DAILY 11/14/16 [Last Taken 07/10/17] buPROPion SR [Wellbutrin 150mg SR (*)] 150 mg PO DAILY 07/10/17 [Last Taken ] Acetaminophen [Tylenol 325mg (*)] 650 mg PO Q4HRS PRN tab 07/14/17 [Last Taken Unknown] Apixaban [Eliquis] 5 mg PO BID tab 07/14/17 [Last Taken Unknown] Benzonatate [Tessalon Pearles] 200 mg PO TID PRN cap 07/14/17 [Last Taken Unknown] Metoprolol Tartrate [Lopressor 25 mg (*)] 12.5 mg PO BID tab 07/14/17 [Last Taken Unknown] Oseltamivir Phosphate [Tamiflu 75 mg (*)] 75 mg PO BIDMEAL cap 07/14/17 [Last Taken Unknown] Additional Medication Instructions: his anticoagulant for atrial fibrillation is a new medicine that should be prescribed for ongoing use at DC from nursing facility Discharge Medications: Refer to the Discharge Home Medication list for PRN reason. PICC Care - Routine: N/A - Orders Services needed: Registered Nurse, Certified Projects Manager, Master Vp Of Product , Physical Therapy, Occupational Therapy Isolation Type: Droplet Isolation (Through July 17) Diet Recommendation: no restrictions on diet Diet Texture: Regular Texture Diet - Follow Up Care Current Providers and Referrals: Red Mckinley MD [Primary Care Provider] - As per Instructions
--- NOTE | 2017-07-14 11:02 | PDDCSUM ---
Discharge Summary Discharge Summary: DISCHARGE DIAGNOSES: -acute hypoxemic respiratory failure -acute influenza a infection HOSPITAL COURSE SUMMARY: This patient who has no history of lung disease came in with fever and cough found have acute influenza a infection along with acute hypoxemic respiratory failure. He has no previous history of respiratory failure or hypoxemia and has never been a smoker. He does have history of diastolic heart disease but there was no evidence of acute heart failure exacerbation at the time of this admission. The patient was brought in the hospital and treated with Tamiflu and hydration and his improved significantly. At this point he is eating well and is up ambulating but remains weak and needing assistance. He still hypoxemic on 2 L of oxygen. At this point he is stable for discharge from hospital but is not strong enough to go home on his own. He is being transferred from here to [facility] for ongoing physical therapy rehabilitation before going home. He will need 2 more days of Tamiflu. As he does have chronic atrial fibrillation and a chads Vasc score of 3 it was recommended that he start anticoagulation. This was started with Eliquis here and he has tolerated it well so far. PENDING TEST RESULTS: None MEDICATION CHANGES: Tamiflu 75 mg twice daily for 2 more days Eliquis for atrial fibrillation FOLLOW-UP PLAN: He is going from here to [facility] at this time. Upon discharge to home will be under the care of his primary care physicians and is recommended that he make an appointment within a couple weeks after finishing his rehabilitation there. Greater than 35 minutes bedside and care coordination time today
--- NOTE | 2017-07-14 11:33 | ASMTLACE ---
DAMIAN Length of stay for Answers: 3 days current admission Acuity / Level of Answers: Yes Care: Did the patient have an inpatient admission? Comorbidities - select Answers: Congestive heart failure all that apply Other Notes: Hx of testicular cancer, macular degeneration, recurrent UTIs # of Emergency department Answers: 1-2 visits in the last 6 months Social determinants Answers: Mental health diagnosis (anxiety, depression, pers onality disorders, etc.) Score: 13 Date Signed: 07/14/2017 11:33 AM Electronically Signed By:BRYAN Pickard
--- NOTE | 2017-07-14 11:40 | ASDISCHSUM ---
Discharge Information Plan Status:SNF Medically Cleared to Leave:07/14/2017 Discharge Date:07/14/2017 CM D/C Disposition:Long Term Facility ADT D/C Disposition:Long Term Facility Projected Discharge Date:07/14/2017 11:00 AM Transportation at D/C:Wheelchair Van Discharge Delay Reason: Follow-Up Date:07/14/2017 11:00 AM Discharge Slot: Final Diagnosis: Placement Information Referral Type:*Fdc/SNF Referral ID:[id number] Provider Name:[facility] Address 1:[address] Address 2: City:[place] Selection Factors: State:[place] Patient Contact Information Contact Name:SHAWNA Relationship:Daughter Address:[address] City:[place] Alternate Phone: State/Zip Code:[place] [address] Email: Financial Information Financial Class:Medicare Primary Plan Desc:MEDICARE INPATIENT Primary Plan Number:[id number] Secondary Plan Desc:[facility] Secondary Plan Number:[id number] Assessment Information LACE LACE Length of stay for Answers: 3 days current admission Acuity / Level of Answers: Yes Care: Did the patient have an inpatient admission? Comorbidities - select Answers: Congestive heart failure all that apply Other Notes: Hx of testicular cancer, macular degeneration, recurrent UTIs # of Emergency department Answers: 1-2 visits in the last 6 months Social determinants Answers: Mental health diagnosis (anxiety, depression, pers onality disorders, etc.) Score: 13 Date Signed: 07/14/2017 11:33 AM Electronically Signed By:BRYAN Pickard [facility] CM Progress Note CM Note CM Note Notes: Patient admitted for weakness and cough, was found to have Influenza A. He is being treated supportively with fluids and antivirals. Patient lives at the [facility] and is normally independent. Initial PT torres suggests that he may need SNF or home care d/t weakness. I called his daughter Nicole to ask about what his PLOF was but was unable to reach her. Case Management will follow for discharge planning. Date Signed: 07/11/2017 02:13 PM Electronically Signed By:Jamia Mills RN [facility] Progress Note CM Note CM Note Notes: Chart reviewed for discharge planning purposes. Patient is having falls and weakness. Per PT reccomendation SNF rehab would be beneficial. Attempted to see patient but he is sleeping. Called daughter and left message to call CM to discuss POC. CM to follow Date Signed: 07/12/2017 03:50 PM Electronically Signed By:Poonam Parker RN [facility] CM Progress Note CM Note CM Note Notes: Spoke with patient about recommendations to discharge to a SNF. He is amenable to this plan. We talked about facilities, and he requests a referral to [facility]. I sent the referral, and pending bed availability, patient should be able to discharge there tomorrow. I asked him to let me know if either he or his family have another facility they'd like us to pursue. Current CM Discharge plan: [facility] Date Signed: 07/13/2017 11:09 AM Electronically Signed By:Jamia Mills RN Intervention Information Intervention Type:*BURR-Signed Date of Service:07/11/2017 10:44 AM Patient Type:Observation Staff Member:Avelina Albarado Hours: Discipline: Severity: Comment:
[2017-07-14 12:08] VITALS: BP 102/81; PULSE 66; RESP 17; O2SAT 90
[2017-07-14 12:10] VITALS: TEMP 97.9
== END 2017-07-14 12:56 | DRG 193 ==
LOC: F1N 07-11 00:44 → OBSVTOIN 07-11 15:44
PROVIDERS: ADMIT Student in an Organized Health Care Education/Training Program; ATTEND Hospitalist
DX: J10.1 Influenza due to other identified influenza virus with other respiratory manifestations (principal); J96.01 Acute respiratory failure with hypoxia; I48.0 Paroxysmal atrial fibrillation; Z91.81 History of falling; Z87.440 Personal history of urinary (tract) infections; Z85.47 Personal history of malignant neoplasm of testis
CPT/HCPCS: 97116-GP; 97161-GP; 97530-GP; G0378; G8978-GP-CJ; G8979-GP-CI; J1650

== ENCOUNTER 2017-08-08 13:19 | Emergency (ER) | payer OTHER ==
--- NOTE | 2017-08-08 13:32 | EDPHY ---
H & P Stated Complaint: tachycardia Time Seen by Provider: 08/08/17 13:31 HPI/ROS: CHIEF COMPLAINT: Tachycardia, palpitations HISTORY OF PRESENT ILLNESS: The patient has a history of paroxysmal atrial fibrillation. He presents to the ED with a 2 day history of tachycardia and palpitations. He reports his blood pressure has been in the 140 range. This occurred briefly yesterday and then again last night. It has been consistently in the 140 range. He denies any chest pain or shortness of breath. The patient was recently diagnosed with atrial fibrillation during his last hospitalization. He was started on Eliquis at that point time. He has been intermittently compliant with that medication but states he is taking it as directed for the past 3 days. The patient denies any recurrent fever, cough or congestion. He denies additional acute complaints. REVIEW OF SYSTEMS: A comprehensive 10 point review of systems is otherwise negative aside from elements mentioned in the history of present illness. Source: Patient - Personal History Current Tetanus/Diphtheria Vaccine: Unsure Current Tetanus Diphtheria and Acellular Pertussis (TDAP): Unsure - Medical/Surgical History Hx Asthma: No Hx Chronic Respiratory Disease: No Hx Diabetes: No Hx Cardiac Disease: Yes Hx Renal Disease: No Hx Cirrhosis: No Hx Alcoholism: No Hx HIV/AIDS: No Hx Splenectomy or Spleen Trauma: No Other PMH: chronic recurrent UTIs, PROSTATE SURG, SEPSIS, APPY, TESTICULAR CA/ SURG, SHOULDER SURG, Afib, - Social History Smoking Status: Former smoker - Physical Exam Exam: General Appearance: Alert, no distress Eyes: Pupils equal and round no pallor or injection ENT, Mouth: Mucous membranes moist Respiratory: There are no retractions, lungs are clear to auscultation Cardiovascular: Tachycardic, regular Gastrointestinal: Abdomen is soft and nontender, no masses, bowel sounds normal Neurological: A&O, normal motor function, normal sensory exam, normal cranial nerves Skin: Warm and dry, no rashes Musculoskeletal: Neck is supple nontender Extremities: symmetrical, full range of motion Constitutional: Initial Vital Signs Heart Rate 156 H 08/08/17 13:26 Respiratory Rate 16 08/08/17 13:26 Blood Pressure 86/74 L 08/08/17 13:26 O2 Sat (%) 92 08/08/17 13:26 O2 Delivery Mode Room Air Allergies/Adverse Reactions: No Known Allergies Allergy (Unverified 08/08/17 13:24) Home Medications: Medication Instructions Recorded Cholecalciferol Vit D3 [Vitamin D3 2,000 units PO DAILY 11/14/16 2000 units tab (OTC)] Cyanocobalamin (Vitamin B-12) 1,000 mcg PO DAILY 11/14/16 [B-12] Escitalopram Oxalate [Lexapro] 20 mg PO DAILY 11/14/16 buPROPion SR [Wellbutrin 150mg SR 150 mg PO DAILY 07/10/17 (*)] Acetaminophen [Tylenol 325mg (*)] 650 mg PO Q4HRS PRN tab 07/14/17 Apixaban [Eliquis] 5 mg PO BID tab 07/14/17 Medical Decision Making - Diagnostics EKG Interpretation: EKG: Complete interpretation has been separately recorded in the [facility] archive. Summary impression: Atrial fibrillation, rate 153 ED Course/Re-evaluation: The patient presents the emergency department with tachycardia the began yesterday. The patient is currently anticoagulated with Eliquis. He is taking the medication as prescribed at least for the past 3 days. Patient denies any chest pain or shortness of breath. The patient was noted to be in AFib with rapid ventricular response with a heart rate of 150. The patient received 15 mg of diltiazem and his AFib slowed to 82. Blood pressure is currently 115/67. I did nallely Marshall from Cardiology. The patient reportedly has a history of chronic atrial fibrillation although we are unable to confirm that based upon the EKGs in our system. The patient will be started on long-acting diltiazem. He is referred to the cardiology office for a follow-up visit tomorrow. The patient is instructed to return to the ED for any worsening symptoms, recurrent palpitations or other concerns. - Data Points Laboratory Results: Laboratory Results 08/08/17 13:38 08/08/17 13:38 08/08/17 08/08/17 13:38 13:38 WBC 8.37 10^3/uL 10^3/uL (3.80-9.50) RBC 5.43 10^6/uL 10^6/uL (4.40-6.38) Hgb 16.8 g/dL g/dL (13.7-17.5) Hct 49.0 % % (40.0-51.0) MCV 90.2 fL fL (81.5-99.8) MCH 30.9 pg pg (27.9-34.1) MCHC 34.3 g/dL g/dL (32.4-36.7) RDW 13.6 % % (11.5-15.2) Plt Count 203 10^3/uL 10^3/uL (150-400) MPV 9.8 fL fL (8.7-11.7) Neut % (Auto) 49.9 % % (39.3-74.2) Lymph % (Auto) 34.1 % % (15.0-45.0) [place] % (Auto) 11.5 % % (4.5-13.0) Eos % (Auto) 3.3 % % (0.6-7.6) Baso % (Auto) 0.8 % % (0.3-1.7) Nucleat RBC Rel Count 0.0 % % (0.0-0.2) Absolute Neuts (auto) 4.18 10^3/uL 10^3/uL (1.70-6.50) Absolute Lymphs (auto) 2.85 10^3/uL 10^3/uL (1.00-3.00) Absolute Monos (auto) 0.96 10^3/uL H 10^3/uL (0.30-0.80) Absolute Eos (auto) 0.28 10^3/uL 10^3/uL (0.03-0.40) Absolute Basos (auto) 0.07 10^3/uL 10^3/uL (0.02-0.10) Absolute Nucleated RBC 0.00 10^3/uL 10^3/uL (0-0.01) Immature Gran % 0.4 % % (0.0-1.1) Immature Gran # 0.03 10^3/uL 10^3/uL (0.00-0.10) Sodium 142 mEq/L mEq/L (135-145) Potassium 4.7 mEq/L mEq/L (3.5-5.2) Chloride 102 mEq/L mEq/L (97-110) Carbon Dioxide 26 mEq/l mEq/l (22-31) Anion Gap 14 mEq/L mEq/L (8-16) BUN 18 mg/dL mg/dL (7-23) Creatinine 1.1 mg/dL mg/dL (0.7-1.3) Estimated GFR > 60 Glucose 111 mg/dL H mg/dL (70-100) Calcium 9.4 mg/dL mg/dL (8.5-10.4) Troponin I < 0.012 ng/mL ng/mL (0.000-0.034) Medications Given: Discontinued Medications Diltiazem HCl (Cardizem) 15 mg IV EDNOW ONE Stop: 08/08/17 14:01 Last Admin: 08/08/17 14:04 Dose: 15 mg Sodium Chloride (Ns) 1,000 mls @ 0 mls/hr IV ONCE ONE; Wide Open PRN Reason: Protocol Stop: 08/08/17 13:37 Last Admin: 08/08/17 14:04 Dose: 1,000 mls Departure - Departure Disposition: Home, Routine, Self-Care Clinical Impression: Atrial fibrillation Condition: Good Instructions: A-fib (Atrial Fibrillation) (ED) Additional Instructions: 1. Please continue your Eliquis as prescribed. 2. Please begin diltiazem as prescribed for your atrial fibrillation. 3. Please contact [facility] to schedule a follow-up visit within the week. Referrals: Red Mckinley MD [Primary Care Provider] - As per Instructions Brant Marshall MD [Medical Doctor] - As per Instructions
[2017-08-08] MEDS ORDERED: NS 1,000 ML IV ONE (13:36)
[2017-08-08] MEDS ORDERED: DILTIAZEM 25 MG/5 ML VIAL IVP ONE (13:37)
--- NOTE | 2017-08-08 13:39 | CPEKG ---
Heart Rate: 153 RR Interval: 392 P-R Interval: 76 QRSD Interval: 76 QT Interval: 288 QTC Interval: 460 P Hutchinson: 0 QRS Hutchinson: 35 T Wave Hutchinson: -83 EKG Severity - ABNORMAL ECG - EKG Impression: ATRIAL FIBRILLATION WITH RAPID V-RATE Electronically Signed By: Catarino Vega 08-Aug-2017 13:41:54
[2017-08-08 13:49] LABS: PLATELET COUNT 203 10^3/uL (150-400)
[2017-08-08] MEDS ORDERED: DILTIAZEM 50 MG/10 ML VIAL IV ONE (14:00)
[2017-08-08 15:10] VITALS: BP 108/63
== END 2017-08-08 15:10 | disposition home or self-care (01) ==
DX: I48.91 Unspecified atrial fibrillation (principal); Z85.47 Personal history of malignant neoplasm of testis; Z87.891 Personal history of nicotine dependence
CPT/HCPCS: 96374

== ENCOUNTER 2017-08-08 15:55 | Observation (INO) | payer OTHER ==
--- NOTE | 2017-08-08 16:11 | CPEKG ---
Heart Rate: 148 RR Interval: 405 QRSD Interval: 80 QT Interval: 292 QTC Interval: 459 QRS Ivanhoe: 47 T Wave [place]: 115 EKG Severity - ABNORMAL ECG - EKG Impression: JUNCTIONAL TACHYCARDIA EKG Impression: REPOLARIZATION ABNORMALITY, PROB RATE RELATED Electronically Signed By: Casandra Shepard 08-Aug-2017 22:10:09
--- NOTE | 2017-08-08 16:32 | EDPHY ---
H & P Time Seen by Provider: 08/08/17 16:09 HPI/ROS: CHIEF COMPLAINT: Lightheaded, dizzy HISTORY OF PRESENT ILLNESS: Patient is a 82-year-old male with a history of atrial fibrillation on the Eliquis who presents to the emergency department with lightheadedness and dizziness. The patient was seen in the emergency department earlier today. He is found to have AFib with rapid ventricular response. This was treated with diltiazem. His rate was controlled and he was discharged home. Patient got on the bus to go home and felt lightheaded. His friend stated that he appeared"rey."Patient denies any chest pain. The patient felt mild palpitations. No shortness of breath. Patient's symptoms are now resolved. REVIEW OF SYSTEMS: My complete review of systems is negative except as mentioned in the HPI. Past Medical/Surgical History: Includes atrial fibrillation, sepsis, UTI, testicular cancer Past surgical history: Includes appy, testicular surgery, shoulder surgery, prostate surgery Social history: The patient does not smoke Smoking Status: Former smoker Physical Exam: Vitals noted. In triage the patient's heart rate was 153. When I was in the room was 105. GENERAL: Well-appearing, in no acute distress, alert. HEENT: Eyes normal to inspection, normal pharynx, no signs of dehydration. NECK: No thyromegaly, no lymphadenopathy, supple. RESPIRATORY: Clear to auscultation bilaterally, no rales, rhonchi or wheezing. CVS: Irregularly irregular tachycardia, no rubs, murmurs, or gallops. ABDOMEN: Soft, nontender, nondistended, no organomegaly. BACK: Normal to inspection, no CVA tenderness. SKIN: Normal color, no rash, warm, dry. No pallor. EXTREMITIES: No pedal edema, no calf tenderness, no Homans sign or cords, no joint swelling. NEURO/PSYCH: Alert and oriented x3, normal mood and affect, normal motor sensory exam. No obvious cranial nerve deficit. Constitutional: Initial Vital Signs Temperature (C) 36.5 C 08/08/17 16:01 Heart Rate 153 H 08/08/17 16:01 Respiratory Rate 18 08/08/17 16:01 Blood Pressure 97/80 L 08/08/17 16:01 O2 Sat (%) 92 08/08/17 16:01 O2 Delivery Mode Room Air Allergies/Adverse Reactions: No Known Allergies Allergy (Unverified 08/08/17 16:01) Home Medications: Medication Instructions Recorded Cholecalciferol Vit D3 [Vitamin D3 2,000 units PO DAILY 11/14/16 2000 units tab (OTC)] Cyanocobalamin (Vitamin B-12) 1,000 mcg PO DAILY 11/14/16 [B-12] Escitalopram Oxalate [Lexapro] 20 mg PO DAILY 11/14/16 buPROPion SR [Wellbutrin 150mg SR 150 mg PO DAILY 07/10/17 (*)] Acetaminophen [Tylenol 325mg (*)] 650 mg PO Q4HRS PRN tab 07/14/17 Apixaban [Eliquis] 5 mg PO BID tab 07/14/17 Diltiazem HCl [Diltiazem 24Hr Cd] 120 mg PO DAILY #30 cap.er.24h 08/08/17 Medical Decision Making ED Course/Re-evaluation: In the emergency department I discussed possible etiologies with the patient. I reviewed the patient's record from earlier today. I recommended admission for observation. The patient agreed. I discussed the case with Dr. Dominguez who will admit the patient. Patient had laboratory studies earlier today. I will pedis troponin added a TSH. EKG: Patient is in a narrow complex tachycardia 148. The complexes are regular. This could be atrial flutter with 2-1 block. This could also be SVT. This does not appear to be atrial fibrillation. This EKG is abnormal as interpreted by me. Of note, when I entered the room patient was in atrial fibrillation at 105 on the monitor. Differential Diagnosis: My differential includes but is not limited to atrial fibrillation, atrial flutter, SVT, ventricular tachycardia, electrolyte abnormality, sugar abnormality, ACS, acute OK, thyroid disease Departure - Departure Disposition: [facility] Inpatient Acute Clinical Impression: Tachycardia Atrial fibrillation Qualifiers: Atrial fibrillation type: unspecified Qualified Code(s): I48.91 - Unspecified atrial fibrillation Condition: Good Referrals: NONE *PRIMARY CARE P,. [Primary Care Provider] - As per Instructions
[2017-08-08] MEDS ORDERED: ONDANSETRON DISINTEGRATING 4 MG TAB PO PRN (16:54)
[2017-08-08] MEDS ORDERED: ONDANSETRON 4 MG/2 ML VIAL IVP PRN (16:54)
[2017-08-08] MEDS ORDERED: ACETAMINOPHEN 325 MG TAB PO PRN (16:54)
[2017-08-08] MEDS: DILTIAZEM 30 MG TAB PO SCH ×2 (18:11→23:24)
--- NOTE | 2017-08-08 18:21 | GHP ---
[f rep st] HISTORY AND PHYSICAL DATE OF ADMISSION: 08/08/2017 CHIEF COMPLAINT: Feeling poorly. HISTORY OF PRESENT ILLNESS: This is an 82-year-old man who was seen earlier in the day in the emerge ncy department for a rapid heart rate. He was given a dose of IV diltiazem, plan was to start him on long-acting dilt and followup soon with Cardiology. He was thus discharged. He was taking the bus home when he started to feel very "lousy" again. He has a little bit difficulty describing this. He denies chest pain, shortness of breath, or palpitations. He feels that he just felt somewhat off an d overall weak. It took his pulse rate and was back up in 150. Thus he got back bus on the bus and returned to the emergency department. He was also found to have a rate of 150. It has bounced betwe en around 100 and 150 since he has been here. He had a recent admission here for bronchitis/influenza A infection. At that point, it was noted watson t he was in chronic atrial fibrillation. Given his CHADS/VASc score of 3, he was started on Eliquis on that admission. He has tolerated it well. PAST MEDICAL/SURGICAL HISTORY: 1. Atrial fibrillation. 2. History of testicular cancer. 3. Appendectomy. MEDICATIONS: Please see medication reconciliation. ALLERGIES: No known drug allergies. FAMILY HISTORY: Parents are . SOCIAL HISTORY: He lives at the [facility]. No significant alcohol or smoking. REVIEW OF SYSTEMS: A 10-point review of systems is conducted and is negative except per HPI. PHYSICAL EXAM: VITAL SIGNS: Blood pressure has been 111/69, heart rate has been between 100 and 150 , respiration rate 18, saturating 95% on room air. Temperature is 36.6. GENERAL: Mr. Peres is a pleasant elderly man who is resting comfortably. No acute distress. HEENT: Shows him to be normoce phalic, atraumatic. CARDIOVASCULAR: Shows him to be irregularly irregular. I do not appreciate any murmurs, rubs, or gallops. There is no elevated JVD. No lower extremity edema. PULMONARY: Lungs are clear to auscultation bilaterally. He is not in respiratory distress. ABDOMEN: Soft, nontender , nondistended. SKIN: Shows no rash. : Shows no Evans. NEUROLOGIC: Shows him to be alert and oriented x3. He is moving all extremities. PSYCHIATRIC: Shows normal mood and affect. LABS: Labs from previous visit to the ED show a normal CBC. Normal basic metabolic panel. He has 2 negative troponins. TSH is pending. DATA: 1. I discussed this with Dr. Shepard. We will admit to the PC. 2. I personally reviewed his telemetry. This shows atrial flutter. 3. I personally viewed and interpreted his EKG. This shows what is likely atrial flutter given the telemetry. He has mild ST depressions in V4 through V6. IMPRESSION AND PLAN: 1. Atrial flutter: Seems as though his rapid rate has been symptomatic. He has not previously been on rate control. I think at this point, it is reasonable to start him on oral diltiazem at 30 q.6. I have written for this. If we have difficulty controlling his rate would consider intravenous dilt iazem. He is already anticoagulated on Eliquis, we will continue this. 2. Recent influenza infection: He is recovering well. He is back at the [facility]. 3. Venous thromboembolism risk: He is low as he is on Eliquis. 4. Cor status: I discussed this at length with him. He had some difficulty with this though. He w ould like to be do not resuscitate. He clearly does understand what this means. /[id number]/MODL
[2017-08-08] MEDS: APIXABAN 5 MG TAB PO SCH (20:20)
[2017-08-09] MEDS: DILTIAZEM 30 MG TAB PO SCH (06:06)
[2017-08-09] MEDS ORDERED: buPROPion SR 150 MG TAB PO SCH (09:00)
[2017-08-09] MEDS ORDERED: ESCITALOPRAM OXALATE 10 MG TAB PO SCH (09:00)
--- NOTE | 2017-08-09 09:32 | HOSPPROG ---
Hospitalist Progress Note Assessment/Plan: Rapid A flutter - Converted this am to NSR. -cont eliquis -cont dilt, change to long acting -echo now, await results Mod AR and mild AD - noted on 2016 echo -repeat echo to ensure A flutter not provoked by worsening valve dz DNR Dispo - likely dc today Subjective: Pt feels better. No CP or SOB Objective: Vital Signs Temp Pulse Resp BP Pulse Ox 36.8 C 73 16 95/61 L 99 08/09/17 07:27 08/09/17 07:27 08/09/17 07:27 08/09/17 07:27 08/09/17 07:27 08/08/17 08/09/17 08/10/17 05:59 05:59 05:59 Intake Total 200 Output Total 650 Balance -450 - Physical Exam Constitutional: no apparent distress Eyes: PERRL Ears, Nose, Mouth, Throat: moist mucous membranes Cardiovascular: regular rate and rhythym, no murmur, rub, or gallop Respiratory: no respiratory distress, clear to auscultation Gastrointestinal: normoactive bowel sounds, soft, non-tender abdomen Skin: warm Musculoskeletal: full muscle strength Neurologic: AAOx3 ICD10 Worksheet Patient Problems: Problems Problem Status Onset Atrial fibrillation Acute Palpitations Acute Tachycardia Acute Acute bronchitis Acute Hypoxia Acute Septic shock Acute Urinary tract infection Acute
--- NOTE | 2017-08-09 10:07 | PDCARCONS ---
Cardiology Consult Reason for Consult: Increased heart rate Chief Complaint: Increased heart rate over 2 days Requesting Physician: Hospitalist History of Present Illness: 82-year-old male history of atrial fibrillation, history of recent influenza admitted with a 2 day history of increased heart rate. This was identified by his pulse oximeter. He has also had some fatigue. He denies chest pain, PND orthopnea. He has had no syncope or near syncope. Past cardiac history significant for intermittent atrial fibrillation. New he has a history of mild valvular heart disease characterized by mild aortic stenosis, mild aortic regurgitation with preserved LV systolic function. Patient denies fever or chills. He has been exercising regularly without limitations. Metabolic evaluation including thyroid status is within normal limits. Troponins are negative. He was adequately rate controlled with diltiazem overnight. He has been anticoagulated with Eliquis over the last 2 weeks. History Information - Allergies/Home Medication List Allergies/Adverse Reactions: No Known Allergies Allergy (Unverified 08/08/17 16:01) Home Medications: Cholecalciferol Vit D3 [Vitamin D3 2000 units tab (OTC)] 2,000 units PO DAILY [Last Taken 08/08/17] Cyanocobalamin (Vitamin B-12) [B-12] 1,000 mcg PO DAILY 11/14/16 [Last Taken 03/17] Escitalopram Oxalate [Lexapro] 20 mg PO DAILY 11/14/16 [Last Taken 08/08/17] buPROPion SR [Wellbutrin 150mg SR (*)] 150 mg PO DAILY 07/10/17 [Last Taken 03/17] Herbals/Supplements -Info Only 1 ea PO DAILY 08/08/17 [Last Taken 08/08/17] I have personally reviewed and updated: family history, medical history, social history, surgical history Past Medical History: - Past Medical History atrial fibrillation - Surgical History Reports: no pertinent surgical hx - Family History Positive for: non-pertinent - Social History Smoking Status: Never smoked Physical Exam Physical Exam: Temp Pulse Resp BP Pulse Ox 36.8 C 73 16 95/61 L 99 08/09/17 07:27 08/09/17 07:27 08/09/17 07:27 08/09/17 07:27 08/09/17 07:27 O2 (L/minute) 2 Constitutional: no apparent distress, not in pain Eyes: PERRL Ears, Nose, Mouth, Throat: moist mucous membranes, hearing normal Cardiovascular: regular rate and rhythym, systolic murmur Peripheral Pulses: 1+: carotid (R), carotid (L), femoral (R), femoral (L), dorsalis-pedis (R), dorsalis-pedis (L) Respiratory: no respiratory distress Gastrointestinal: normoactive bowel sounds, soft, non-tender abdomen Genitourinary: no bladder fullness Skin: warm, normal color Musculoskeletal: full muscle strength, no muscle tenderness Neurologic: AAOx3, No facial droop Psychiatric: interacting appropriately Lymph, Heme, Immunologic: no cervical LAD, no supraclavicular LAD Lab and Imaging Troponin I < 0.012 ng/mL (0.000-0.034) 08/09/17 03:14 TSH 2.760 uIU/mL (0.465-4.680) 08/08/17 16:22 EKG additional interpertation: Initial EKG suggested atrial flutter ventricular rate of 148. Nonspecific ST-T changes were noted. No evidence of ischemia. Follow-up telemetry now shows sinus rhythm. A/P Assessment: Impression: 82-year-old male with paroxysmal atrial fibrillation back in sinus rhythm. Atrial flutter was associated with a rapid ventricular response of 150 beats per minute which he tolerated well without angina or heart failure. He is appropriately anticoagulated. Agree with rate control with diltiazem daily. 30 day monitor to determine AFib burden and need for rhythm management. Agree with repeat echocardiogram for assessment of progressive valvular heart disease. There is no evidence of ischemic component with negative troponins despite rate of 150 without dynamic EKG changes at this rate. Clinical follow-up recommended. I think he is okay for discharge. Will be happy to follow up as an outpatient. Plan: Agree diltiazem for rate control. Agree continued Eliquis for stroke prevention. 30 day monitor as an outpatient for AFib burden. Clinical follow-up. Review of Systems Review of Systems: - Review of Systems Constitutional: denies: chills, fever EENTM: no symptoms reported Respiratory: no symptoms reported Cardiac: palpitations. denies: chest pain, lightheadedness Gastrointestinal/Abdominal: no symptoms reported Genitourinary: no symptoms Musculoskelatal: no symptoms Skin: no symptoms Neurological: no symptoms Hematologic/Lymphatic: no symptoms reported Immunologic/allergic: no symptoms reported Past Medical History PMH: - Personal History Current Tetanus/Diphtheria Vaccine: Unsure Current Tetanus Diphtheria and Acellular Pertussis (TDAP): Unsure - Medical/Surgical History Hx Asthma: No Hx Chronic Respiratory Disease: No Hx Cardiac Disease: Yes Hx Diabetes: No Hx Renal Disease: No Hx Alcoholism: No Hx Cirrhosis: No Hx HIV/AIDS: No Hx Splenectomy or Spleen Trauma: No Other PMH: chronic recurrent UTIs, PROSTATE SURG, SEPSIS, APPY, TESTICULAR CA/ SURG, SHOULDER SURG, Afib, - Social History Smoking Status: Never smoked Additional Social History:
--- NOTE | 2017-08-09 10:24 | ECHO ---
[email or web address] [address] [address] Main: [phone] Fax: Transthoracic Echocardiogram Name: CHANTEL WEST MR#: [id number] Study Date: 08/09/2017 Study Time: 09:10 AM Date of : 1935 Age: 82 year(s) Height: 180.3 cm (71 in.) Weight: 79.83 kg (176 lb.) BSA: 2 m2 Gender: Male Examination: Echo Indication: Image Quality: Adequate Contrast: Requested by: Fabiola Vargas BP: 95 mmHg/61 mmHg Heart Rate: Rhythm: Indication: Procedure Staff Brake Specialist: Becky Rodriguez [facility] Reading Physician: Gene Ackerman MD Requesting Provider: Conclusions: No pericardial effusion. Preserved ejection fraction of 60%. Aortic valve sclerosis with progressive aortic regurgitation. This is associated with a left ventricular end-diastolic dimension of 4.4 cm. Mild mitral regurgitation. Right ventricular systolic pressure is within normal limits. Repeat echocardiogram recommended in 1 year. Measurements: Chambers Valvular Assessment AV/MV Valvular Assessment TV/PV Normal Normal Normal Name Value Range Name Value Range Name Value Range Ao Yumiko (2D): 3.9 cm (1.4 cm-2.6 AV meanP mmHg ( - ) TR Vmax: 2.31 mm/s ( - ) cm) MIREYA (VTI): 1.5 cm ( - ) TR PGmax: 21 mmHg ( - ) IVSd (2D): 1.2 cm (0.6 cm-1.1 AR (PHT): 665 ms ( - ) syst. PAP: 26 mmHg ( - ) cm) MV E Vmax: 0.61 m/s ( - ) PV Vmax: 0.64 m/s (0.6 m/s-0.9 LVDd (2D): 4.4 cm (4.2 cm-5.9 MV A Vmax: 0.40 m/s ( - ) m/s) cm) MV E/A: 1.52 ( - ) PV PGmax: 2 mmHg ( - ) LVDs (2D): 3.3 cm (2.1 cm-4 cm) MV PHT: 0.070 s ( - ) LVPWd (2D): 1.0 cm (0.6 cm-1 MVA (PHT): 3.1 s ( - ) cm) LVOTd 2.1 cm 2.1 cm mm LVEF (BP): 60 % (>=55 %) RVDd(2D): 3.4 cm (1.9 cm-3.8 cmmm) Continued Measurements: Chambers Valvular Assessment AV/MV Valvular Assessment TV/PV Name Value Name Value Name Value LADs: 3.7 cm MV DecTime: 201 m/s CVP (est.): 5 mmHg LADs Lon.3 cm MV E' Septal: 0.07 m/s Patient: CHANTEL WEST Study Date: 08/09/2017 Page 1 of 2 09:10 AM LA Area: 17.8 cm2 MV E/E' Septal: 8.70 LA Volume: 52 ml MV E/E' Lateral: 5.70 LA Volume Index: 26.0 ml/m2 AR Vmax: 4.02 cm/s RA Area: 12.2 cm2 Additional Vessels Name Value Ao Ascendin.6 cm Inferior Vena Cava: 1.4 cm Findings: Left Ventricle: Normal size left ventricle. No LV hypertrophy. Normal global systolic LV function. EF is 60 %. No regional wall motion abnormality. Normal diastolic LV function. Right Ventricle: Normal size right ventricle. Normal RV function. Left Atrium: The left atrium is normal in size. Right Atrium: The right atrium is normal in size. Mitral Valve: The mitral valve is normal in appearance and function. Mild mitral valve regurgitation is present. No mitral stenosis is present. Aortic Valve: The aortic valve is normal in appearance and function. Severe aortic valve regurgitation is present. Mild calcific aortic valve stenosis. Tricuspid Valve: The tricuspid valve is normal in appearance and function. Mild tricuspid regurgitation is present. Pulmonic Valve: The pulmonic valve is normal in appearance and function. There is no pulmonic regurgitation seen. Aorta: The aorta is normal. Normal size aortic root measuring 3.9 cm. Normal size ascending aorta measuring 3.6 cm. IVC: The IVC is normal sized. Pericardium: No pericardial effusion. No pleural effusion. (No Signature Object) Patient: CHANTEL WEST Study Date: 08/09/2017 Page 2 of 2 09:10 AM [id number]
[2017-08-09] MEDS: APIXABAN 5 MG TAB PO SCH (10:33)
--- NOTE | 2017-08-09 11:02 | CPEKG ---
Heart Rate: 66 RR Interval: 909 P-R Interval: 292 QRSD Interval: 84 QT Interval: 412 QTC Interval: 432 P Byron: 52 QRS Byron: 8 T Wave Byron: 55 EKG Severity - ABNORMAL ECG - EKG Impression: SINUS RHYTHM EKG Impression: MULTIPLE VENTRICULAR PREMATURE COMPLEXES EKG Impression: FIRST DEGREE AV BLOCK Electronically Signed By: Aster Bob 09-Aug-2017 11:18:24
[2017-08-09 11:26] VITALS: BP 119/66
[2017-08-09] MEDS ORDERED: DILTIAZEM CD 120 MG CAP PO SCH (12:00)
--- NOTE | 2017-08-09 17:59 | GDS ---
[f rep st] DISCHARGE SUMMARY DISCHARGE DIAGNOSES: 1. Atrial flutter with rapid ventricular response. 2. Severe aortic regurgitation, progressed from moderate in October 2016. 3. Chronic anticoagulation. 4. CONSULTANTS: Gene Ackerman MD, Cardiology. IMAGING STUDIES AND PROCEDURES: Echocardiogram August 09, 2017, showed an ejection fraction of 60%, p rogressive aortic regurgitation now classified as severe, associated with left ventricular end-diasto lic dimension of 4.4 cm, mild mitral regurgitation. No pericardial effusion. HISTORY: For details, please see the History and Physical dated August 08, 2017. In brief, the patie chirag is an 82-year-old male with a history of recently diagnosed atrial fibrillation and recent initiat ion of anticoagulation, who presents to the emergency department feeling poorly. He was found to be in rapid atrial fibrillation, and was admitted to the hospital for further management. HOSPITAL COURSE: The patient was admitted to the progressive care unit. He was started on oral dilt iazem. His Eliquis was continued for stroke prevention, given his CHADS-VASc score of 3. The follow ing morning, he converted to normal sinus rhythm and maintained this into the mid afternoon. His sym ptoms have completely resolved. A repeat echocardiogram was performed to reassess the status of his valve disease. He has had progression of his aortic valve regurgitation, which is now severe. Cardi ology consulted and he will follow up with them for a cardiac event monitor to assess his AFib burden . He was transitioned to long-acting diltiazem at discharge. I discussed with him that he will foll ow up with Dr. Ackerman at [facility]. DISPOSITION: Patient is discharged home in stable condition. FOLLOWUP: Dr. Gene Ackerman, [facility], in 3-5 days for a cardiac event monitor and fur ther management of his atrial flutter and valvular heart disease. DISCHARGE MEDICATIONS: Please see [employer] for completed outpatient medication list. New medication s on discharge include diltiazem CD 120 mg p.o. daily, #30, no refills. He will continue his current dose of Eliquis 5 mg p.o. b.i.d. /[id number]/MODL
== END 2017-08-09 15:38 | disposition home or self-care (01) ==
LOC: F2W 16:58
PROVIDERS: ADMIT Student in an Organized Health Care Education/Training Program; ATTEND Hospitalist
DX: I48.92 Unspecified atrial flutter (principal); I48.0 Paroxysmal atrial fibrillation; R00.0 Tachycardia, unspecified; I35.1 Nonrheumatic aortic (valve) insufficiency; Z79.01 Long term (current) use of anticoagulants; Z87.440 Personal history of urinary (tract) infections; Z85.47 Personal history of malignant neoplasm of testis
CPT/HCPCS: 71046; 93005; 93306; 99285; G0378

== ENCOUNTER → 2018-04-12 | Outpatient (CLI) | payer OTHER | LOC: BHFA 14:45 | PROVIDERS: ATTEND Internal Medicine Cardiovascular Disease | DX: R01.1 Cardiac murmur, unspecified (principal) ==

== ENCOUNTER → 2018-05-21 | Outpatient (CLI) | payer OTHER | LOC: BHFA 10:15 | PROVIDERS: ATTEND Internal Medicine Cardiovascular Disease | DX: R06.02 Shortness of breath (principal); I35.1 Nonrheumatic aortic (valve) insufficiency ==

== ENCOUNTER 2018-05-28 12:23 | Day surgery (SDC) | payer OTHER ==
[2018-05-28] MEDS ORDERED: MIDAZOLAM 2 MG/2 ML VIAL IVP ONE (12:26)
[2018-05-28] MEDS ORDERED: NS 500 ML IV ONE (12:26)
[2018-05-28] MEDS ORDERED: BENZOCAINE UNIT DOSE SPRAY HURRICAINE MM ONE (12:26)
[2018-05-28] MEDS ORDERED: fentaNYL 100 MCG/2 ML INJ IVP ONE (12:26)
--- NOTE | 2018-05-28 13:28 | PDANEPAE ---
ANE History of Present Illness AI, SOB, Afib ANE Past Medical History - Cardiovascular History Hx Hypertension: No Hx Arrhythmias: Yes Hx Chest Pain: No Hx Coronary Artery / Peripheral Vascular Disease: No Hx CHF / Valvular Disease: Yes Hx Palpitations: Yes Cardiovascular History Comment: A jeremi, AI - Pulmonary History Hx COPD: No Hx Asthma/Reactive Airway Disease: No Hx Recent Upper Respiratory Infection: No Hx Oxygen in Use at Home: No Hx Sleep Apnea: No - Endocrine History Hx Diabetes: No Hypothyroid: No Hyperthyroid: No Obesity: no - Renal History Hx Renal Disorders: No - Liver History Hx Hepatic Disorders: No - Neurological & Psychiatric Hx Neurological / Psychiatric History Comment: depression - Cancer History Hx Cancer: No - Congenital Disorder History Hx Congenital Disorders: No - GI History GERD: no - Chronic Pain History Chronic Pain: No ANE Review of Systems Review of systems is: negative Review of Systems: ANE Patient History - Allergies Allergies/Adverse Reactions: No Known Allergies Allergy (Unverified 08/08/17 16:01) - Home Medications Home medications: home medication list seen and reviewed Home Medications: Cholecalciferol Vit D3 [Vitamin D3 2000 units tab (OTC)] 2,000 units PO DAILY [Last Taken 08/08/17] Cyanocobalamin (Vitamin B-12) [B-12] 1,000 mcg PO DAILY 11/14/16 [Last Taken 03/17] Escitalopram Oxalate [Lexapro] 20 mg PO DAILY 11/14/16 [Last Taken 08/08/17] buPROPion SR [Wellbutrin 150mg SR (*)] 150 mg PO DAILY 07/10/17 [Last Taken 03/17] Herbals/Supplements -Info Only 1 ea PO DAILY 08/08/17 [Last Taken 08/08/17] - NPO status NPO Status: no food or drink >8 hours - Anes Hx Anes Hx: no prior problems - Smoking Hx Smoking Status: Never smoked Marijuana use: No - Alcohol Use Alcohol Use: None - Family Anes Hx Family Anes Hx: none ANE Physical Exam - Airway Neck exam: FROM Mallampati Score: Class 2 Mouth exam: normal dental/mouth exam - Pulmonary Pulmonary: no respiratory distress, clear to auscultation - Cardiovascular Cardiovascular: no murmur, rub, or gallop, irregularly irregular - ASA Status ASA Status: III ANE Anesthesia Plan Anesthesia Plan: GA with mask Total IV Anesthesia: Yes
[2018-05-28] MEDS ORDERED: PROPOFOL/EMULSION 500 MG/50 ML BOTTLE IV ONE (14:07)
[2018-05-28] MEDS ORDERED: NALOXONE HCL 0.4 MG/ML INJ IVP PRN (14:08)
--- NOTE | 2018-05-28 14:08 | PDHPUP ---
History & Physical Update H&P update statement: This history and physical update is based on an assessment of the patient which was completed after admission or registration (within 24 hours), but prior to the surgery/procedure. H&P update: H&P reviewed & patient examined, no change in patient's condition since H&P completed
--- NOTE | 2018-05-28 14:08 | POSTANESTH ---
Post Anesthetic Evaluation Cardiovascular Status: Normal, Stable Respiratory Status: Normal, Stable Level of Consciousness/Mental Status: Can Participate in Eval Pain Control: Adequate, Prn Tx Ordered Nausea/Vomiting Control: Adequate, Prn Tx Ordered Complications Possibly Related to Anesthesia: None Noted
[2018-05-28 15:57] VITALS: BP 130/78
--- NOTE | 2018-05-28 17:24 | ECHO ---
[email or web address] [address] [address] Main: [phone] Fax: Transesophageal Echocardiography Name: CHANTEL WEST MR#: [id number] Study Date: 05/28/2018 Study Time: 01:45 PM Date of : 1935 Age: 83 year(s) Height: 180.3 cm (71 in.) Weight: 79.38 kg (175 lb.) BSA: 1.99 m2 Gender: Male Examination: SHYANN Indication: Eval aortic valve Image Quality: Contrast: Requested by: Linh Vargas Heart Rate: Rhythm: BP: 122 mmHg/71 mmHg Procedure Staff Lump Roller: Hina Walsh RDCS Reading Physician: Linh Vargas MD Requesting Provider: SHYANN Exam Details Conclusions: Normal global systolic LV function. An agitated saline study was performed and was negative for intracardiac shunting. No thrombus in left appendage. Mild mitral valve regurgitation is present. Nonspecific anterior leaflet thickening. Moderate aortic valve regurgitation is present. Trileaflet valve that does not coapt completely secondary to its dilated root. Aortic root measures 4.6cm. PHT was 433/465 m/s.. Mild pulmonic valve regurgitation is noted. Measurements: Chambers Valvular Assessment AV/MV Valvular Assessment TV/PV Normal Normal Normal Name Value Range Name Value Range Name Value Range LVDd (2D): 4.8 cm (4.2 cm-5.9 AR (PHT): 535 ms ( - ) cm) Additional Measurements: Valvular Assessment AV/MV Name Value AR Vmax: 3.98 cm/s Patient: CHANTEL WEST Study Date: 05/28/2018 Page 1 of 2 01:45 PM Findings: Left Ventricle: Normal size left ventricle. Normal global systolic LV function. Left Atrium: An agitated saline study was performed and was negative for intracardiac shunting. Left Atrial Appendage: No thrombus in left appendage. Mitral Valve: Mild mitral valve regurgitation is present. Nonspecific anterior leaflet thickening. Aortic Valve: Moderate aortic valve regurgitation is present. Trileaflet valve that does not coapt completely secondary to its dilated root. Aortic root measures 4.6cm. PHT was 433/465 m/s.. Tricuspid Valve: Trivial tricuspid valve regurgitation. Pulmonic Valve: The pulmonic valve is normal in appearance. Mild pulmonic valve regurgitation is noted. l1n (No Signature Object) Patient: CHANTEL WEST Study Date: 05/28/2018 Page 2 of 2 01:45 PM [id number]
== END 2018-05-28 15:57 | disposition home or self-care (01) ==
LOC: FCATH 12:23
PROVIDERS: ATTEND Internal Medicine Cardiovascular Disease
PROC: B245ZZ4 Ultrasonography of Left Heart, Transesophageal (ICD-10-PCS; principal; 2018-05-28)
DX: I35.1 Nonrheumatic aortic (valve) insufficiency (principal); I48.91 Unspecified atrial fibrillation; R06.02 Shortness of breath; E55.9 Vitamin D deficiency, unspecified; D64.9 Anemia, unspecified; F32.9 Major depressive disorder, single episode, unspecified; Z79.01 Long term (current) use of anticoagulants; Z85.47 Personal history of malignant neoplasm of testis
CPT/HCPCS: J2704

== ENCOUNTER → 2018-09-04 | Outpatient (CLI) | payer OTHER | LOC: FCPNEURO 23:41 | PROVIDERS: ATTEND Student in an Organized Health Care Education/Training Program | DX: G47.33 Obstructive sleep apnea (adult) (pediatric) (principal) ==